=== PATIENT | male | born 1950 | race Caucasian/White ===

== ENCOUNTER → 2016-09-10 | Emergency (ER) | payer OTHER ==
[~2016-09-10] MED LIST: AMOXICILLIN 500 MG CAPSULE (FP) ONE; AMOXICILLIN 500 MG CAPSULE (FP) PO ONE; CLARITHROMYCIN 500 MG TABLET (UD) PO ONE; FAMOTIDINE 20 MG/50 ML IVPB 50 ML IVPB ONE; PANTOPRAZOLE SODIUM 100 ML IVPB ONE; PANTOPRAZOLE SODIUM 40 MG in SODIUM CHLORIDE 100 ML IVPB ONE; SODIUM CHLORIDE 0.9% 1000 ML INFUS.BAG IV ONE
[2016-09-10 17:28] VITALS: BP 137/77; PULSE 59; TEMP 98.3; BMI 34.9
--- NOTE | 2016-09-10 21:49 | PDOC ---
*Physical Exam - Vital Signs Last Vital Signs Temp Pulse Resp BP Pulse Ox 98.3 F 59 L 20 137/77 98 09/10/16 17:24 09/10/16 17:24 09/10/16 17:24 09/10/16 17:24 09/10/16 17:24 ED Treatment Course - LABORATORY CBC & Chemistry Diagram: 09/10/16 23:00 09/10/16 23:00 Medical Decision Making - Medical Decision Making 09/10/16 21:49 agree with care from MAX Madden *DC/Admit/Observation/Transfer Diagnosis at time of Disposition: Gastroduodenitis - Discharge Dispostion Disposition: HOME Condition at time of disposition: Stable - Prescriptions Prescriptions: Amoxicillin - [Amoxicillin 500mg Capsule -] 500 mg PO BID #20 capsule Clarithromycin [Biaxin -] 500 mg PO BID #20 tablet Pantoprazole Sodium [Protonix] 40 mg PO BID #20 tablet.dr - Referrals Referrals: Jos Lucero DO [Staff Physician] - - Patient Instructions Printed Discharge Instructions: DI for Peptic Ulcer Additional Instructions: Please take medications as prescribed. As discussed, you MUST follow up with the gastroenterology doctor THIS WEEK for further evaluation. If you develop fever, chills, nausea, vomiting, diarrhea, rectal bleeding, shortness of breath , chest pain, or any new or worsening symptoms, please return to the ER. Por favor, tome los medicamentos segn las instrucciones. Segn lo discutido, tiene que seguir con el doctor de la gastroenterologa [facility] para la evaluacin adicional. Si usted desarrolla fiebre, escalofros, nuseas, vmitos , diarrea, sangrado rectal, dificultad para respirar, dolor en el pecho, o cualquier nuevo o empeoramiento de los sntomas, por favor regrese a la jack de emergencias. Print Language: BRITISH [place]
--- NOTE | 2016-09-10 22:30 | PDOC ---
History of Present Illness - General Chief Complaint: Pain Stated Complaint: UPPER ABDOMINAL PAIN Time Seen by Provider: 09/10/16 21:04 - History of Present Illness Initial Comments: 09/10/16 22:25 CHIEF COMPLAINT: abdominal pain HISTORY OF PRESENT ILLNESS: 66 yo M with hx of HTN and GERD presents to ED with complaints of abdominal pain and "a lot of saliva" over the past few days. Patient denies any vomiting, diarrhea, rectal bleeding. Patient reports taking "two pills of pain medicine" yesterday but is unsure of what medicine it was. Patient states he has a "bad bacteria in his stomach" that was diagnosed here in this hospital but is unclear what the bacteria was and what medications he was given for treatment. No recent travel or sick contacts. PAST MEDICAL HISTORY: Denies past medical history FAMILY HISTORY: Denies SOCIAL HISTORY: Denies tobacco, alcohol, illicit drug use. SURGICAL HISTORY: Denies ALLERGIES: No known drug allergies REVIEW OF SYSTEMS General/Constitutional: Denies fever or chills. Denies weakness, weight change. HEENT: Denies change in vision. Denies ear pain or discharge. Denies sore throat. Cardiovascular: Denies chest pain or shortness of breath. Respiratory: Denies cough, wheezing, or hemoptysis. Gastrointestinal: "I keep spitting up a lot of salive and I have pain in my stomach." Denies nausea, vomiting, diarrhea or constipation. Denies rectal bleeding. Genitourinary: Denies dysuria, frequency, or change in urination. Musculoskeletal: Denies joint or muscle swelling or pain. Denies neck or back pain. Skin and breasts: Denies rash or easy bruising. Neurologic: Denies headache, vertigo, loss of consciousness, or loss of sensation. PHYSICAL EXAM General Appearance: Well-appearing, appropriately dressed. No apparent distress , no intoxication. HEENT: EOMI, PERRLA, normal ENT inspection, normal voice, TMs normal, pharynx normal. No conjunctival pallor. No photophobia, scleral icterus. Respiratory/Chest: Lungs CTAB. Cardiovascular: RRR. S1, S2. Gastrointestinal/Abdominal: Epigastric tenderness. Normal bowel sounds. Abdomen soft, non-distended. No tenderness or rebound tenderness. No organomegaly, pulsatile mass, guarding, hernia, hepatomegaly, splenomegaly. Lymphatic: No adenopathy, tenderness. Musculoskeletal/Extremities: Normal inspection. FROM of all extremities, normal capillary refill. Pelvis Stable. No CVA tenderness. No tenderness to extremities, pedal edema, swelling, erythema or deformity. Integumentary: Appropriate color, dry, warm. No cyanosis, erythema, jaundice or rash Neurologic: percher II-XII intact. Fully oriented, alert. Appropriate mood/affect. Motor strength 5/5. No appreciable EOM palsy, facial droop or sensory deficit. Past History - Past Medical History Allergies/Adverse Reactions: Allergies Allergy/AdvReac Type Severity Reaction Status Date / Time No Known Drug Allergies Allergy Verified 03/28/16 14:58 Home Medications: Ambulatory Orders Amlodipine Besylate 5 mg PO DAILY 03/28/16 Amoxicillin - [Amoxicillin 500mg Capsule -] 500 mg PO BID #20 capsule 09/11/16 Clarithromycin [Biaxin -] 500 mg PO BID #20 tablet 09/11/16 Pantoprazole Sodium [Protonix] 40 mg PO BID #20 tablet. 09/11/16 Disorders: Yes (NEPHROLITHIASIS) HTN: Yes Kidney Stones: Yes - Immunization History Immunization Up to Date: Yes - Psycho/Social/Smoking Cessation Hx Anxiety: No Suicidal Ideation: No Smoking History: Never smoked Have you smoked in the past 12 months: No If you are a former smoker, when did you quit?: 12 YEARS Hx Alcohol Use: No Drug/Substance Use Hx: No Substance Use Type: None Hx Substance Use Treatment: No *Physical Exam - Vital Signs Last Vital Signs Temp Pulse Resp BP Pulse Ox 98.3 F 59 L 20 137/77 98 09/10/16 17:24 09/10/16 17:24 09/10/16 17:24 09/10/16 17:24 09/10/16 17:24 ED Treatment Course - LABORATORY CBC & Chemistry Diagram: 09/10/16 23:00 09/10/16 23:00 Medical Decision Making - Medical Decision Making 09/10/16 22:28 66 yo M with hx of HTN and GERD presents to ED with complaints of abdominal pain and "a lot of saliva" over the past few days. -CBC, CMP, lipase -IVF, Pepcid, Protonix Chart history indicates patient was diagnosed with gastroduodenitis, but historical labs unavailable. Likely PUD secondary to H. Pylori, will treat as such and have patient f/u up with GI this week for further management. -Clarithromycin 500 mg bid -Amox 1000 bid -Protonix 40 mg bid *DC/Admit/Observation/Transfer Diagnosis at time of Disposition: Gastroduodenitis - Discharge Dispostion Disposition: HOME Condition at time of disposition: Stable Admit: No - Prescriptions Prescriptions: Amoxicillin - [Amoxicillin 500mg Capsule -] 500 mg PO BID #20 capsule Clarithromycin [Biaxin -] 500 mg PO BID #20 tablet Pantoprazole Sodium [Protonix] 40 mg PO BID #20 tablet.dr - Referrals Referrals: Jos Lucero DO [Staff Physician] - - Patient Instructions Printed Discharge Instructions: DI for Peptic Ulcer Additional Instructions: Please take medications as prescribed. As discussed, you MUST follow up with the gastroenterology doctor THIS WEEK for further evaluation. If you develop fever, chills, nausea, vomiting, diarrhea, rectal bleeding, shortness of breath , chest pain, or any new or worsening symptoms, please return to the ER. Por favor, tome los medicamentos segn las instrucciones. Segn lo discutido, tiene que seguir con el doctor de la gastroenterologa [facility] para la evaluacin adicional. Si usted desarrolla fiebre, escalofros, nuseas, vmitos , diarrea, sangrado rectal, dificultad para respirar, dolor en el pecho, o cualquier nuevo o empeoramiento de los sntomas, por favor regrese a la jack de emergencias. Print Language: DJIBOUTIAN
[2016-09-10 23:10] LABS: BASOPHIL 0.6 % (0-2.0); EOSINOPHIL 1.3 % (0-4.5); MCH 27.7 pg (25.7-33.7); MCHC 32.4 g/dl (32.0-35.9); MEAN CELL VOLUME 85.5 fl (80-96); MEAN PLT VOLUME 8.4 fl (7.5-11.1); NEUTROPHILS 47.9 % (42.8-82.8); PLATELET COUNT 186 K/MM3 (134-434); RDW 14.1 % (11.9-15.9); WHITE BLOOD COUNT 5.8 K/mm3 (4.0-10.0)
[2016-09-10 23:42] LABS: ALBUMIN 3.6 g/dl (3.4-5.0); ALK PHOS 91 U/L (45-117); ANION GAP 10 (8-16); BILIRUBIN,TOTAL 0.6 mg/dL (0.2-1.0); CALCIUM 8.6 mg/dL (8.5-10.1); CO2 27 mmol/L (21-32); CREATININE 1.1 mg/dL (0.7-1.3); GLUCOSE,RANDOM 86 mg/dL (74-106); SGOT/AST 21 U/L (15-37); SGPT/ALT 22 U/L (12-78); TOT PROT 7.7 g/dl (6.4-8.2)
== END | disposition home or self-care (01) ==
LOC: JER 17:14
DX: K29.90 Gastroduodenitis, unspecified, without bleeding (principal); K21.9 Gastro-esophageal reflux disease without esophagitis; I10 Essential (primary) hypertension; Z87.442 Personal history of urinary calculi
CPT/HCPCS: 36415; 80053; 83690; 85025; 99282-25

== ENCOUNTER 2019-12-09 17:51 | Inpatient (IN) | payer MEDICARE, OTHER ==
[2019-12-09 17:55] VITALS: BMI 29.1
[2019-12-09] MEDS ORDERED: ACETAMINOPHEN 325 MG TABLET (FP) PO ONE (17:55)
--- NOTE | 2019-12-09 18:11 | PDOC ---
Rapid Medical Evaluation Chief Complaint: Respiratory Time Seen by Provider: 12/09/19 18:08 Medical Evaluation: Allergies Allergy/AdvReac Type Severity Reaction Status Date / Time No Known Drug Allergies Allergy Verified 12/09/19 17:53 Vital Signs Temp Pulse Resp BP Pulse Ox 101.9 F H 98 H 24 H 144/71 96 12/09/19 17:53 12/09/19 17:53 12/09/19 17:53 12/09/19 17:53 12/09/19 17:53 12/09/19 18:09 I performed a brief in-person evaluation of this patient. Patient is a 69-year-old male who presents to the ED for shortness of breath and chest pain. He was recently discharged from the hospital secondary to ARDS and COVID diagnosis. The patient's family called EMS because he was having difficulty breathing and chest pain. Pertinent physical exam findings: Speaking in 3-4 word sentences with slight retractions appreciated. Good air entry bilaterally. Flushed skin appreciated. I have ordered the following: Labs including cardiac panel, EKG, laboratory monitor Patient to proceed to ED for further evaluation. Discharge Disposition - Diagnosis Chest pain - Discharge Dispostion Last Admission D/C Date: 12/08/19 - Referrals Referrals: Kathya Dixon MD [Primary Care Provider] - - Patient Instructions - Post Discharge Activity
--- NOTE | 2019-12-09 18:42 | PDOC ---
History of Present Illness - General Chief Complaint: Respiratory Stated Complaint: POSSIBLE COVID Time Seen by Provider: 12/09/19 18:08 tPA Exclusion checklist 3-4.5h - Time Elapsed Date last known well: 12/08/19 Time last known well: 12:00 Elaspsed time: 1 Day(s) and 13 Hour(s) and 40 Minutes - Thrombolytic Therapy Candidate Is patient eligible for thrombolytic therapy: No - Ineligibility reason(s) Reasons No tPA given: Outside of window - delayed arrival NIH Stroke Scale - Last Known Well Date/Time & Onset Date Last Known Well: 12/08/19 Time Last Known Well: 12:00 - Initial Evaluation Level of consciousness: Alert Ask patient the month and their age: Answers both correctly Ask patient to open & close eyes; make fist and let go: Obeys both correctly Best gaze (horizontal eye movement): Normal Visual field testing: No visual field loss Facial paresis (Show teeth/raise eyebrows/close eyes tight): Normal symmetrical movement Motor Function: Left Arm: Normal Motor Function: Right Arm: Normal (extends arm 90 (or 45) degrees for 10 seconds without drift Motor Function: Left Leg: Normal (extends leg 30 degrees for 5 seconds without drift) Motor Function: Right Leg: Normal (extends leg 30 degrees for 5 seconds without drift) Limb Ataxia: No ataxia Sensory(Use pinprick test arms,legs,trunk,face/side to side): Normal Best language (Describe picture, name items, read sentences): Mild to moderate aphasia Dysarthria (read several words): Normal articulation Extinction and Inattention: No abnormality - Total Score NIH Stroke Scale Score: 1 Past History - Medical History Allergies/Adverse Reactions: Allergies Allergy/AdvReac Type Severity Reaction Status Date / Time No Known Drug Allergies Allergy Verified 12/09/19 17:53 Home Medications: Ambulatory Orders Amlodipine Besylate [Norvasc -] 10 mg PO DAILY 12/07/19 Ascorbic Acid [Vitamin C -] 1,000 mg PO BID #28 tablet 12/08/19 Budesonide/Formeterol Fumarate [SYMBICORT 160/4.5mcg -] 2 puff IH BID #1 inhaler 12/08/19 Zinc Sulfate [Orazinc -] 220 mg PO BID #28 capsule 12/08/19 COPD: No Disorders: Yes (NEPHROLITHIASIS) HTN: Yes Kidney Stones: Yes - Immunization History Immunization Up to Date: Yes - Psycho-Social/Smoking History Smoking History: Never smoked Have you smoked in the past 12 months: No If you are a former smoker, when did you quit?: 12 YEARS - Substance Abuse Hx (Audit-C & DAST Scrn) How often the patient has a drink containing alcohol: Never Score: In Men: 4 or > Positive; In Women: 3 or > Positive: 0 Screen Result (Pos requires Nsg. Audit-10AR): Negative In the last yr the pt used illegal drug/Rx for NonMed reason: No Score: Yes response is considered Positive: 0 Screen Result (Positive result requires Nsg. DAST-10): Negative *Physical Exam - Vital Signs Last Vital Signs Temp Pulse Resp BP Pulse Ox 101.9 F H 98 H 24 H 144/71 96 12/09/19 17:53 12/09/19 17:53 12/09/19 17:53 12/09/19 17:53 12/09/19 17:53 ED Treatment Course - LABORATORY CBC & Chemistry Diagram: 12/09/19 19:49 12/09/19 19:49 - Medications Given in the ED: ED Medications Discontinued Medications Generic Name Dose Route Start Last Admin Trade Name Freq PRN Reason Stop Dose Admin Acetaminophen 975 mg 12/09/19 17:55 12/09/19 17:55 Tylenol - PO 12/09/19 17:56 975 mg NOW ONE Administration Medical Decision Making - Medical Decision Making 12/09/19 18:41 HPI: 69yo M hx HTN, GERD, COVID + (admitted here 12/05-12/07) sent from home by family for shortness of breath and chest pain. He was recently discharged yesterday from the hospital secondary to ARDS and COVID diagnosis. The patient's family called EMS because he was having difficulty breathing and chest pain. Pt states his difficulty breathing has improved over the past days, and his chest pain has remained the same for 4 days, intermittent, L-sided, pressure type, worse with breathing and exertion. Pt states he feels better than before. Pt states he visited the ED more than a few days ago and states he did not sleep here. He states he has been home from the hospital for 3-4 days. Pt knows name and birthday and hospital location, but does not know year or date or situation. Pt does not know why he's here. Per Dr Torres, pt was A&Ox4 on 12/06/19 and exhibited no signs of dementia/delirium or memory loss. Per son ([phone]), pt has no hx of memory loss or dementia, though son states he's never asked the pt what month/day/year it is so he's not sure if he would know that. Son states he left hospital yesterday and son noticed worsening difficulty breathing and sick appearance "mareado" so sent him back. ROS: Constitutional: Positive for fever. Negative for chills, fatigue, diaphoresis. HENT: Negative for sore throat, rhinorrhea, congestion. Eyes: Negative for visual disturbance. Respiratory: Positive for shortness of breath. Negative for cough, and wheezing. Cardiovascular: Positive for chest pain. Negative for palpitations, and leg swelling. Gastrointestinal: Negative for abdominal pain, blood in stool, constipation, diarrhea, nausea, and vomiting. Genitourinary: Negative for dysuria, flank pain, and hematuria. Musculoskeletal: Negative for myalgias, back pain, and neck pain. Skin: Negative for rash. Neurological: Positive for AMS. Negative for light-headedness, dizziness, vertigo, syncope, weakness, numbness and headaches. Psychiatric/Behavioral: Positive for AMS/confusion. Negative for behavioral problems. PE: Gen: Alert, NAD, comfortable-appearing. HEENT: PERRL, EOMI, MMM, NCAT. No conjunctival pallor. Sclera are non-icteric. CV: Regular rate and rhythm. No murmurs, rubs, or gallops. PULM: No resp distress. +crackles b/l bases, good air movement b/l, no wheezes or rhonchi. ABD: soft, NT/ND, no rebound tenderness or guarding, no CVA tenderness. BACK: No TTP of c/t/l-spine. No step-offs or deformities. MSK: No bony deformities. 2+ pulses in all extremities. NEURO: Alert and oriented to name and place, but not to date or situation. PERRL. CN 2-12 intact. 5/5 strength in all extremities. Sensation to light touch intact in all extremities. No pronator drift. No dysmetria. No dysdiadochokinesia. No abnormal nystagmus. Normal gait. EXTREMITIES: No cyanosis. No clubbing. No edema. No calf tenderness. PSYCH: Normal mood and thought pattern. SKIN: Warm and dry. Normal capillary refill. No rashes. No jaundice. MDM: 69yo M hx HTN, GERD, COVID + (admitted here 12/05-12/07) presents from home for worsening shortness of breath and chest pain, as well as new AMS. Febrile 101.9F, tachycardic 98, tachypneic 24, O2 sat 98% on RA, normotensive. NIHSS 1 mild aphasia/memory loss, LKN ~noon yesterday. Ddx: CP and SOB likely due to COVID. Also consider ACS/PR, PE, PNA, arrhythmia. For AMS, consider stroke (possible increased risk due to COVID), metabolic/respiratory encephalopathy, anemia, infection. -CTH -EKG -CXR -AMS and stroke workup -COVID w/u -surveillance monitor -Isolation -Dispo: likely admit pending w/u 12/09/19 22:56 CTH reviewed: no acute pathology Labs reviewed. Notable for increase in inflammatory markers and d-dimer from yesterday, hyponatremia, HLD -Consider eliquis or other blood thinner CXR reviewed: no significant change from prior EKG reviewed: 85bpm, NSR, low voltage QRS, DE interval 150ms, QTc 447ms, no significant change from prior Admit for AMS, COVID, concern for hypoxemic encephalopathy vs metabolic encephalopathy vs stroke 2/2 COVID Discharge - Discharge Information Problems reviewed: Yes Clinical Impression/Diagnosis: Chest pain, COVID-19, SOB (shortness of breath), AMS (altered mental status) Condition: Stable - Admission Yes - Follow up/Referral - Patient Discharge Instructions - Post Discharge Activity
[2019-12-09 20:14] LABS: BASO % 0.5 % (0-2.0); HEMATOCRIT 39.9 % (35.4-49); HEMOGLOBIN 13.3 GM/dL (11.7-16.9); LYMPH % 5.6 % (8-40); MCH 27.5 pg (25.7-33.7); MCHC 33.3 g/dl (32.0-35.9); MEAN CELL VOLUME 82.5 fl (80-96); MEAN PLT VOLUME 8.5 fl (7.5-11.1); MONO % 6.8 % (3.8-10.2); NEUT % 87.1 % (42.8-82.8); PLATELET COUNT 240 K/MM3 (134-434); RBC 4.83 M/mm3 (4.00-5.60); RDW 13.4 % (11.9-15.9); WHITE BLOOD COUNT 13.9 K/mm3 (4.0-10.0)
[2019-12-09 20:15] LABS: VENOUS BASE EXCESS -3.3 mmol/L (-2-2); VENOUS O2 SATURATION 90.6 % (70-80); VENOUS PCO2 26.3 mmHg (38-52); VENOUS PH 7.469 (7.310-7.410)
[2019-12-09 20:20] LABS: INR 0.93 (0.83-1.09)
[2019-12-09 20:22] LABS: ACTIVATED PTT 27.4 SECONDS (25.2-36.5)
--- NOTE | 2019-12-09 20:23 | PDOC ---
Documentation entered by Ilan Saldivar SCRIBE, acting as scribe for Enu Guillermo MD. Eun Guillermo MD: This documentation has been prepared by the scribe, Ilan Saldivar SCRIBE, under my direction and personally reviewed by me in its entirety. I confirm that the documentation accurately reflects all work, treatment, procedures, and medical decision making performed by me. Attending Attestation - Resident Resident Name: Eun Leyva - ED Attending Attestation I have performed the following: I have examined & evaluated the patient, The case was reviewed & discussed with the resident, I agree w/resident's findings & plan, Exceptions are as noted - HPI HPI: 12/09/19 19:21 The patient is a 69 year old male with a significant past medical history of HTN, currently, COVID positive who presents to the emergency department, [facility], for evaluation of worsening chest pain and shortness of breath that began 12 days ago. The patient is currently AMS (not baseline), unable to remember the date, year, and his discharge from the hospital yesterday. As per family over the phone, the patient experienced an exacerbation of his chest pain and shortness of breath today. The patient currently reports feeling better, reporting his chest pain has been the same for four days and his shortness of breath is better. He came to the ED 12/06/19 for evaluation of 9 days of fever, chills, myalgias, and loss of taste. He was admitted until 12/08/19 secondary to ARDS and COVID diagnosis. The patient notes returning from [facility] on 12/03/19. Allergies: NKDA Social Hx: The patient reports he quit smoking 30 years ago. Denies tobacco and drug use. PCP: Kathya Dixon - Physicial Exam PE: 12/09/19 18:46 GENERAL: Awake, alert, and oriented to person and place, but not time. In no acute distress HEAD: No signs of trauma EYES: PERRLA, EOMI, sclera anicteric, conjunctiva clear ENT: Auricles normal inspection, hearing grossly normal, nares patent, oropharynx clear without exudates. Moist mucosa NECK: Normal ROM, supple, no lymphadenopathy, JVD, or masses LUNGS: Breath sounds equal, clear to auscultation bilaterally. No wheezes, and no crackles HEART: Regular rate and rhythm, normal S1 and S2, no murmurs, rubs or gallops ABDOMEN: Soft, nontender, normoactive bowel sounds. No guarding, no rebound. No masses EXTREMITIES: Normal range of motion, no edema. No clubbing or cyanosis. No cords, erythema, or tenderness NEUROLOGICAL: Cranial nerves II through XII grossly intact. Normal speech, normal gait. No sensorimotor deficits. SKIN: Warm, Dry, normal turgor, no rashes or lesions noted. - Medical Decision Making Pt discharged home with COVID-19 yesterday, returned to ED today with initial complaint of SOB/chest pressure and upper chest pain. On exam was found to be disoriented to time, did not know the date or year. This is not his baseline as per family. AMS workup initiated in the ED. Poss CVA due to COVID-19, but also could be another infectious process, metabolic encephalopathy. Await labs, CTH, CXR. Not a tPA candidate- unclear onset. Plan for admission. NIH Stroke Scale - Last Known Well Date/Time & Onset Date Last Known Well: 12/09/19 - Initial Evaluation Level of consciousness: Alert Ask patient the month and their age: Answers one correctly Ask patient to open & close eyes; make fist and let go: Obeys both correctly Best gaze (horizontal eye movement): Normal Visual field testing: No visual field loss Facial paresis (Show teeth/raise eyebrows/close eyes tight): Normal symmetrical movement Motor Function: Left Arm: Normal Motor Function: Right Arm: Normal (extends arm 90 (or 45) degrees for 10 seco nds without drift Motor Function: Left Leg: Normal (extends leg 30 degrees for 5 seconds without drift) Motor Function: Right Leg: Normal (extends leg 30 degrees for 5 seconds without drift) Limb Ataxia: No ataxia Sensory(Use pinprick test arms,legs,trunk,face/side to side): Normal Best language (Describe picture, name items, read sentences): No Aphasia Dysarthria (read several words): Normal articulation Extinction and Inattention: No abnormality - Total Score NIH Stroke Scale Score: 1 Discharge - Discharge Information Problems reviewed: Yes Clinical Impression/Diagnosis: COVID-19, SOB (shortness of breath) Chest pain Qualifiers: Chest pain type: chest pain on breathing Qualified Code(s): R07.1 - Chest pain on breathing; R07.81 - Pleurodynia AMS (altered mental status) Qualifiers: Altered mental status type: disorientation Qualified Code(s): R41.0 - Disorientation, unspecified Condition: Stable - Follow up/Referral - Patient Discharge Instructions - Post Discharge Activity
[2019-12-09 20:31] LABS: ALK PHOS 73 U/L (45-117); ANION GAP 9 MMOL/L (8-16); BILIRUBIN,TOTAL 0.6 mg/dL (0.2-1); BLOOD UREA NITROGEN 20.8 mg/dL (7-18); CALCIUM 8.3 mg/dL (8.5-10.1); CHLORIDE 100 mmol/L (98-107); CHOLESTEROL 121 mg/dL (50-200); CO2 23 mmol/L (21-32); CREATININE 1.2 mg/dL (0.55-1.3); GLUCOSE,RANDOM 223 mg/dL (74-106); HDL CHOLESTEROL 25 mg/dL (40-60); LDL CHOLESTEROL (ONLY SJRH) 41 mg/dL (5-100); MAGNESIUM 1.9 mg/dL (1.8-2.4); POTASSIUM 4.1 mmol/L (3.5-5.1); SGOT/AST 59 U/L (15-37); SGPT/ALT 57 U/L (13-61); SODIUM 132 mmol/L (136-145); TOT PROT 7.2 g/dl (6.4-8.2); TRIGLYCERIDES 251 mg/dL (0-150)
[2019-12-09 20:34] LABS: BILIRUBIN,DIRECT 0.2 mg/dL (0.0-0.2)
[2019-12-09 20:48] LABS: LDH 340 U/L (87-246)
[2019-12-09 20:52] LABS: ANISOCYTOSIS 0; MACROCYTOSIS 0; PLATELET ESTIMATE NORMAL
[2019-12-09 22:15] LABS: EPI CELLS 15 /uL (0-25.1); HYALINE CASTS 16 /uL (0-3.1); URINE APPEARANCE CLEAR; URINE BACTERIA 175 /uL (0-1359); URINE BILIRUBIN NEGATIVE (NEGATIVE); URINE COLOR YELLOW; URINE GLUCOSE (UA) NEGATIVE (NEGATIVE); URINE KETONE NEGATIVE (NEGATIVE); URINE LEUK ESTERASE NEGATIVE (NEGATIVE); URINE NITRITE NEGATIVE (NEGATIVE); URINE PROTEIN 1+ (NEGATIVE); URINE RBC 2 /uL (0-23.9); URINE WBC 2 /uL (0-25.8)
--- NOTE | 2019-12-09 23:14 | PN ---
Teaching Attending Note Name of Resident: Candelario Pineda ATTENDING PHYSICIAN STATEMENT I saw and evaluated the patient. I reviewed the resident's note and discussed the case with the resident. I agree with the resident's findings and plan as documented. SUBJECTIVE: Patient is a 69 year old man with a PMH of HTN, Kidney stones, GERD and COVID-19 infection (12/06/2019) who presents to the ER for evaluation of worsening chest pain and shortness of breath that began 12 days ago. Noted to have AMS in the ER (not baseline), unable to remember the date, year, and his discharge from the hospital yesterday. As per family over the phone, the patient experienced an exacerbation of his chest pain and shortness of breath today. The patient currently reports feeling better, reporting his chest pain has been the same for four days and his shortness of breath is better. He came to the ED 12/06/19 for evaluation of 9 days of fever, chills, myalgias and loss of taste. He was admitted until 12/08/19 secondary to ARDS and COVID diagnosis. He had completed an antibiotics course and was deemed not a candidate for Remdesivir or convalescent plasma because he was not hypoxic. He returned from [facility] on 12/03/2019. Patient denies nausea, vomiting, diarrhea, constipation, dysuria, frequency, urgency, melena, hematochezia or hematuria. Denies alcohol, tobacco or illicit drug use. Family history is unremarkable. OBJECTIVE: Alert Vital Signs Period Temp Pulse Resp BP Sys/Harkins Pulse Ox Last 24 Hr 100.2 F-101.9 F 87-98 20-24 136-144/67-71 96-97 HEENT: No Jaundice, eye redness or discharge, PERRLA, EOMI. Normocephalic, atraumatic. External ears are normal and hearing is grossly intact. No nasal discharge. Neck: Supple, nontender. No palpable adenopathy or thyromegaly. No JVD Chest: Good effort. Clear to auscultation and percussion. Heart: Regular. No S3, rub or murmur Abdomen: Not distended, soft, nontender and no HSM. No rebound or guarding. Normal bowel sounds. Ext: Peripheral pulses intact. No leg edema. Skin: Warm and dry. No petechiae, rash or ecchymosis. Neuro: Alert. Oriented x3. CN 2-12 grossly intact. Sensation grossly intact in all four extremities and DTR are symmetric. Psych: Appropriate mood and affect. Good insight. Home Medications Medication Instructions Recorded Amlodipine Besylate [Norvasc -] 10 mg PO DAILY 12/07/19 Ascorbic Acid [Vitamin C -] 1,000 mg PO BID #28 tablet 12/08/19 Budesonide/Formeterol Fumarate 2 puff IH BID #1 inhaler 12/08/19 [SYMBICORT 160/4.5mcg -] Zinc Sulfate [Orazinc -] 220 mg PO BID #28 capsule 12/08/19 Abnormal Lab Results 12/09/19 12/09/19 12/09/19 19:49 19:49 19:49 WBC 13.9 H Absolute Neuts (auto) 12.1 H Neutrophils % 87.1 H Lymphocytes % 5.6 L D-Dimer VBG pH 7.469 H POC VBG pCO2 26.3 L POC VBG pO2 54.0 H VBG HCO3 18.7 L VBG O2 Sat (Rogerio) 90.6 H VBG Base Excess -3.3 L Sodium 132 L BUN 20.8 H Random Glucose 223 H Calcium 8.3 L Ferritin AST 59 H LD Total 340 H Creatine Kinase 423 H C-Reactive Protein 8.6 H Albumin 3.0 L Triglycerides 251 H HDL Cholesterol 25 L Ur Specific [place] Urine Protein 12/09/19 12/09/19 12/09/19 19:49 19:49 21:55 WBC Absolute Neuts (auto) Neutrophils % Lymphocytes % D-Dimer 1329 H VBG pH POC VBG pCO2 POC VBG pO2 VBG HCO3 VBG O2 Sat (Rogerio) VBG Base Excess Sodium BUN Random Glucose Calcium Ferritin 903.8 H AST LD Total Creatine Kinase C-Reactive Protein Albumin Triglycerides HDL Cholesterol Ur Specific [place] 1.008 L Urine Protein 1+ H Current Medications Generic Name Dose Route Start Last Admin Trade Name Freq PRN Reason Stop Dose Admin Amlodipine Besylate 10 mg 12/10/19 10:00 Norvasc - PO DAILY MAYNOR Ascorbic Acid 1,000 mg 12/10/19 10:00 Vitamin C - PO BID MAYNOR Budesonide/Formoterol Fumarate 2 puff 12/10/19 10:00 Symbicort 160/4.5mcg - IH BID MAYNOR Enoxaparin Sodium 40 mg 12/10/19 10:00 Lovenox - SQ DAILY [facility] Zinc Sulfate 220 mg 12/10/19 10:00 Orazinc - PO BID [facility] ASSESSMENT AND PLAN: 1. COVID-19 infection/Pneumonitis/AMS - Oxygen saturation was 96-97% on 2L nasal cannula. CT chest from 12/07/2019 showed peripheral ground glass infiltrates consistent with COVID-19 pneumonitis. CXR shows cardiomegaly with bibasilar interstitial infiltrates. No acute abnormality on head CT. AMS and impaired memory likely due to COVID-19 infection. Will treat patient with Zinc sulfate, Pepcid, Vitamin C, Tylenol PRN and consult ID. Already completed a course of antibiotics two days ago. Needs ID consult approval for Remdesivir and convalescent plasma. Will send blood for type and cross. Viral testing for COVID-19 ordered and patient placed on airborne, droplet and contact isolation. Started on supplemental oxygen via nasal cannula. EKG shows NSR at 85/minute, LAFB and QTc [address]- T wave changes. Initial troponin is negative. Hyponatremia likely partly due to hyperglycemia. Will limit free water intake and correct hyperglycemia. Will continue comprehensive care for all of patients comorbid conditions. 2. Hypoalbuminemia - Possibly due to combined effects of malnutrition and inflammation associated with comorbid conditions. 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 3. Hypertension Will restart suitable outpatient antihypertensive drugs when clinically appropriate. Subsequently, will revise regimen to ensure [id number] excellent BP control. Patient counseled on the injurious effects of uncontrolled hypertension. Nonpharmacologic measures to control hypertension like weight loss, salt restriction and exercise stressed. Importance of adherence to treatment regimen and attainment of normotension emphasized. 4. DVT prophylaxis - Lovenox 40 mg SQ q 24 hours. 5. Advance directives - Full code
--- NOTE | 2019-12-10 04:15 | HP ---
CHIEF COMPLAINT: SOB PCP: HISTORY OF PRESENT ILLNESS: This is a 69 year old male with PMH of HTN and recent admission for COVID (12/05- 12/07). Pt. appears to be tired and wanting to sleep, unwilling to participate in interview at this time. As per chart review from previous visit, he returned from the [facility] on 12/02 and he began having fevers a few days prior to his trip. This was associated with chills, dry cough, lethargy, and anosmia for the last 9 days. He completed a 5 day course of Azithromycin outpatient, which did not improve his symptoms. He was admitted on 12/05, and was D/Hero on 12/07 without requiring any oxygen support. CT Chest at the time showed B/L ground glass infiltrates suggestive of COVID, although antibody at the time was negative. He was given Dexamethasone 10mg x1, Solu-Medrol 32mg x1, Ceftriaxone 1g x2, Doxycycline 100mg x1, and Azithromycin IVPB 500mg x1. He now returns with SOB and chest pain. ER course was notable for: (1) D dimer 1.3k (2)Temp 100.3 (3) CT Head: no acute pathology Recent Travel: Unable to assess PAST MEDICAL HISTORY: Unable to assess PAST SURGICAL HISTORY: Unable to assess Social History: Unable to assess Allergies No Known Drug Allergies Allergy (Verified 12/09/19 17:53) HOME MEDICATIONS: Home Medications Medication Instructions Recorded Amlodipine Besylate [Norvasc -] 10 mg PO DAILY 12/07/19 Ascorbic Acid [Vitamin C -] 1,000 mg PO BID #28 tablet 12/08/19 Budesonide/Formeterol Fumarate 2 puff IH BID #1 inhaler 12/08/19 [SYMBICORT 160/4.5mcg -] Zinc Sulfate [Orazinc -] 220 mg PO BID #28 capsule 12/08/19 REVIEW OF SYSTEMS CONSTITUTIONAL: Absent: fever, chills, diaphoresis, generalized weakness, malaise, loss of appetite, weight change HEENT: Absent: rhinorrhea, nasal congestion, throat pain, throat swelling, difficulty swallowing, mouth swelling, ear pain, eye pain, visual changes CARDIOVASCULAR: Absent: chest pain, syncope, palpitations, irregular heart rate, lightheadedness, peripheral edema RESPIRATORY: Absent: cough, shortness of breath, dyspnea with exertion, orthopnea, wheezing, stridor, hemoptysis GASTROINTESTINAL: Absent: abdominal pain, abdominal distension, nausea, vomiting, diarrhea, constipation, melena, hematochezia GENITOURINARY: Absent: dysuria, frequency, urgency, hesitancy, hematuria, flank pain, genital pain MUSCULOSKELETAL: Absent: myalgia, arthralgia, joint swelling, back pain, neck pain SKIN: Absent: rash, itching, pallor HEMATOLOGIC/IMMUNOLOGIC: Absent: easy bleeding, easy bruising, lymphadenopathy, frequent infections ENDOCRINE: Absent: unexplained weight gain, unexplained weight loss, heat intolerance, cold intolerance NEUROLOGIC: Absent: headache, focal weakness or paresthesias, dizziness, unsteady gait, seizure, mental status changes, bladder or bowel incontinence PSYCHIATRIC: Absent: anxiety, depression, suicidal or homicidal ideation, hallucinations. PHYSICAL EXAMINATION Vital Signs - 24 hr 12/09/19 12/09/19 12/09/19 17:53 19:30 20:53 Temperature 101.9 F H Pulse Rate 98 H 87 Pulse Rate [ Left Radial] Respiratory 24 H Rate Blood Pressure 144/71 Blood Pressure [Left Arm] O2 Sat by Pulse 96 97 97 Oximetry (%) 12/09/19 12/09/19 12/10/19 21:57 21:58 00:43 Temperature 100.2 F H 100.6 F H Pulse Rate 89 Pulse Rate [ 89 103 H Left Radial] Respiratory 20 20 Rate Blood Pressure Blood Pressure 136/67 [Left Arm] O2 Sat by Pulse 97 97 96 Oximetry (%) 12/10/19 12/10/19 12/10/19 00:50 01:35 02:59 Temperature 100.3 F H Pulse Rate 85 100 H Pulse Rate [ Left Radial] Respiratory 20 Rate Blood Pressure 155/78 Blood Pressure [Left Arm] O2 Sat by Pulse 97 97 94 L Oximetry (%) 12/10/19 04:07 Temperature 102.7 F H Pulse Rate 100 H Pulse Rate [ Left Radial] Respiratory 22 H Rate Blood Pressure 139/74 Blood Pressure [Left Arm] O2 Sat by Pulse 95 Oximetry (%) GENERAL: Awake, alert, and fully oriented, in no acute distress. HEAD: Normal with no signs of trauma. EYES: Pupils equal, round and reactive to light, extraocular movements intact, sclera anicteric, conjunctiva clear. No lid lag. EARS, NOSE, THROAT: Ears normal, nares patent, oropharynx clear without exudates. Moist mucous membranes. NECK: Normal range of motion, supple without lymphadenopathy, JVD, or masses. LUNGS:Decreased breath sounds B/L, no crackles or wheezes HEART: Regular rate and rhythm, normal S1 and S2 without murmur, rub or gallop. ABDOMEN: Soft, nontender, not distended, normoactive bowel sounds, no guarding, no rebound, no masses. No hepatomegaly or splenomegaly. MUSCULOSKELETAL: Normal range of motion at all joints. No bony deformities or tenderness. No CVA tenderness. UPPER EXTREMITIES: 2+ pulses, warm, well-perfused. No cyanosis. No clubbing. No peripheral edema. LOWER EXTREMITIES: 2+ pulses, warm, well-perfused. No calf tenderness. No peripheral edema. NEUROLOGICAL: Cranial nerves II-XII intact. Normal speech. Normal gait. PSYCHIATRIC: Cooperative. Good eye contact. Appropriate mood and affect. SKIN: Warm, dry, normal turgor, no rashes or lesions noted, normal capillary refill. Laboratory Results - last 24 hr 12/09/19 12/09/19 12/09/19 19:49 19:49 19:49 WBC 13.9 H RBC 4.83 Hgb 13.3 Hct 39.9 MCV 82.5 MCH 27.5 MCHC 33.3 RDW 13.4 Plt Count 240 MPV 8.5 Absolute Neuts (auto) 12.1 H Neutrophils % 87.1 H Neutrophils % (Manual) 82.4 Band Neutrophils % 0.9 Lymphocytes % 5.6 L Lymphocytes % (Manual) 9.3 Monocytes % 6.8 Monocytes % (Manual) 6 Eosinophils % 0.0 Eosinophils % (Manual) 0.0 Basophils % 0.5 D Basophils % (Manual) 0.0 Myelocytes % (Man) 1 Promyelocytes % (Man) 0 Blast Cells % (Manual) 0 Nucleated RBC % 0 Metamyelocytes 1 Hypochromia 0 Platelet Estimate Normal Polychromasia 0 Poikilocytosis 0 Anisocytosis 0 Microcytosis 0 Macrocytosis 0 PT with INR 11.00 INR 0.93 PTT (Actin FS) 27.4 D-Dimer VBG pH POC VBG pCO2 POC VBG pO2 VBG HCO3 VBG O2 Sat (Rogerio) VBG Base Excess Sodium 132 L Potassium 4.1 Chloride 100 Carbon Dioxide 23 Anion Gap 9 BUN 20.8 H Creatinine 1.2 Est GFR (CKD-EPI)AfAm 71.58 Est GFR (CKD-EPI)NonAf 61.76 Random Glucose 223 H Lactic Acid Calcium 8.3 L Magnesium 1.9 Ferritin Total Bilirubin 0.6 Direct Bilirubin AST 59 H ALT 57 Alkaline Phosphatase 73 LD Total 340 H Creatine Kinase 423 H Creatine Kinase Index No Result Required. CK-MB (CK-2) < 1.0 Troponin I < 0.02 C-Reactive Protein 8.6 H Total Protein 7.2 Albumin 3.0 L Triglycerides 251 H Cholesterol 121 Total LDL Cholesterol 41 HDL Cholesterol 25 L Urine Color Urine Appearance Urine pH Ur Specific [place] Urine Protein Urine Glucose (UA) Urine Ketones Urine Blood Urine Nitrite Urine Bilirubin Urine Urobilinogen Ur Leukocyte Esterase Urine WBC (Auto) Urine RBC (Auto) Urine Casts (Auto) U Pathogenic Cast Auto U Epithel Cells (Auto) Urine Bacteria (Auto) Blood Type Antibody Screen 12/09/19 12/09/19 12/09/19 19:49 19:49 19:49 WBC RBC Hgb Hct MCV MCH MCHC RDW Plt Count MPV Absolute Neuts (auto) Neutrophils % Neutrophils % (Manual) Band Neutrophils % Lymphocytes % Lymphocytes % (Manual) Monocytes % Monocytes % (Manual) Eosinophils % Eosinophils % (Manual) Basophils % Basophils % (Manual) Myelocytes % (Man) Promyelocytes % (Man) Blast Cells % (Manual) Nucleated RBC % Metamyelocytes Hypochromia Platelet Estimate Polychromasia Poikilocytosis Anisocytosis Microcytosis Macrocytosis PT with INR INR PTT (Actin FS) D-Dimer VBG pH 7.469 H POC VBG pCO2 26.3 L POC VBG pO2 54.0 H VBG HCO3 18.7 L VBG O2 Sat (Rogerio) 90.6 H VBG Base Excess -3.3 L Sodium Potassium Chloride Carbon Dioxide Anion Gap BUN Creatinine Est GFR (CKD-EPI)AfAm Est GFR (CKD-EPI)NonAf Random Glucose Lactic Acid 1.4 Calcium Magnesium Ferritin 903.8 H Total Bilirubin Direct Bilirubin 0.2 AST ALT Alkaline Phosphatase LD Total Creatine Kinase Creatine Kinase Index CK-MB (CK-2) Troponin I C-Reactive Protein Total Protein Albumin Triglycerides Cholesterol Total LDL Cholesterol HDL Cholesterol Urine Color Urine Appearance Urine pH Ur Specific [place] Urine Protein Urine Glucose (UA) Urine Ketones Urine Blood Urine Nitrite Urine Bilirubin Urine Urobilinogen Ur Leukocyte Esterase Urine WBC (Auto) Urine RBC (Auto) Urine Casts (Auto) U Pathogenic Cast Auto U Epithel Cells (Auto) Urine Bacteria (Auto) Blood Type Antibody Screen 12/09/19 12/09/19 12/09/19 19:49 20:40 21:55 WBC RBC Hgb Hct MCV MCH MCHC RDW Plt Count MPV Absolute Neuts (auto) Neutrophils % Neutrophils % (Manual) Band Neutrophils % Lymphocytes % Lymphocytes % (Manual) Monocytes % Monocytes % (Manual) Eosinophils % Eosinophils % (Manual) Basophils % Basophils % (Manual) Myelocytes % (Man) Promyelocytes % (Man) Blast Cells % (Manual) Nucleated RBC % Metamyelocytes Hypochromia Platelet Estimate Polychromasia Poikilocytosis Anisocytosis Microcytosis Macrocytosis PT with INR INR PTT (Actin FS) D-Dimer 1329 H VBG pH POC VBG pCO2 POC VBG pO2 VBG HCO3 VBG O2 Sat (Rogerio) VBG Base Excess Sodium Potassium Chloride Carbon Dioxide Anion Gap BUN Creatinine Est GFR (CKD-EPI)AfAm Est GFR (CKD-EPI)NonAf Random Glucose Lactic Acid Calcium Magnesium Ferritin Total Bilirubin Direct Bilirubin AST ALT Alkaline Phosphatase LD Total Creatine Kinase Creatine Kinase Index CK-MB (CK-2) Troponin I C-Reactive Protein Total Protein Albumin Triglycerides Cholesterol Total LDL Cholesterol HDL Cholesterol Urine Color Yellow Urine Appearance Clear Urine pH 6.0 Ur Specific [place] 1.008 L Urine Protein 1+ H Urine Glucose (UA) Negative Urine Ketones Negative Urine Blood Trace Urine Nitrite Negative Urine Bilirubin Negative Urine Urobilinogen 1.0 Ur Leukocyte Esterase Negative Urine WBC (Auto) 2 Urine RBC (Auto) 2 Urine Casts (Auto) 16 U Pathogenic Cast Auto None seen U Epithel Cells (Auto) 15 Urine Bacteria (Auto) 175 Blood Type O POSITIVE Antibody Screen Negative ASSESSMENT/PLAN: 69 year old male with PMH of HTN and recent admission for COVID (12/05-12/07), returning with SOB and chest pain. #COVID-19 - Cough, fevers, anosmia, elevated inflammatory markers, D dimers 1.3k, Elevated Creatinine GGI on CT - Isolation precautions, COVID PCR ordered - WBC 13.9 - Trend markers - Started on Lovenox 75mg BID due to elevated D dimers - ID consult for recs regarding abx, may need rx for concurrent/superimposed CAP - Pulm consult placed for recs regarding Remdesevir/Plasma/Dexamethasone therapy - Would recommend recording SpO2 off of oxygen in the morning when adequate support is available in case of acute deterioration - Blood cx sent - Zinc, Vitamin C resumed #Proteinuria - Will repeat to r/o transient proteinuria, may also be 2/2 infection - Urine Protein:Cr ratio if persistently elevated #Hx of HTN -Continue home Norvasc #FEN - Na controlled diet #Prophylaxis - Lovenox 75mg BID #Dispo - Monitor in [place] ATTENDING PHYSICIAN STATEMENT I saw and evaluated the patient. I reviewed the resident's note and discussed the case with the resident. I agree with the resident's findings and plan as documented. SUBJECTIVE: OBJECTIVE: ASSESSMENT AND PLAN:
[2019-12-10] MEDS ORDERED: ACETAMINOPHEN 325 MG TABLET (FP) PO PRN ×2 (04:17→12:34)
[2019-12-10] MEDS: ENOXAPARIN NA (PORCINE) 80 MG/0.8 ML DISP.SYRIN SQ SCH ×2 (05:40→17:42)
[2019-12-10 08:52] LABS: HEMATOCRIT 38.9 % (35.4-49); HEMOGLOBIN 13.1 GM/dL (11.7-16.9); MCH 28.1 pg (25.7-33.7); MCHC 33.7 g/dl (32.0-35.9); MEAN CELL VOLUME 83.2 fl (80-96); MEAN PLT VOLUME 9.2 fl (7.5-11.1); PLATELET COUNT 207 K/MM3 (134-434); RBC 4.67 M/mm3 (4.00-5.60); RDW 13.2 % (11.9-15.9); WHITE BLOOD COUNT 11.4 K/mm3 (4.0-10.0)
[2019-12-10 09:23] LABS: ALBUMIN 2.7 g/dl (3.4-5.0); BILIRUBIN,TOTAL 0.7 mg/dL (0.2-1); CREATININE 1.1 mg/dL (0.55-1.3); PHOSPHOROUS 2.6 mg/dL (2.5-4.9); POTASSIUM 4.4 mmol/L (3.5-5.1); TOT PROT 6.7 g/dl (6.4-8.2)
[2019-12-10] MEDS ORDERED: ENOXAPARIN NA (PORCINE) 40 MG/0.4 ML DISP.SYRIN SQ SCH (10:00)
[2019-12-10] MEDS: amLODIPine BESYLATE 10 MG TABLET (FP) PO SCH (10:18)
[2019-12-10] MEDS: ASCORBIC ACID 500 MG TABLET (FP) PO SCH ×2 (10:18→21:25)
[2019-12-10] MEDS: ZINC SULFATE 220 MG CAPSULE (FP) PO SCH ×2 (10:18→21:25)
[2019-12-10] MEDS ORDERED: PT OWN MED DRAWER 7, Y5N ONE (10:22)
[2019-12-10] MEDS: BUDESONIDE/FORMETEROL FUMARATE 160/4.5 mcg INHALER IH SCH ×2 (10:22→21:25)
--- NOTE | 2019-12-10 11:53 | PN ---
Progress Note (short form) - Note Progress Note: This patient is a 69yom with PMHx of HTN , with a recent admission for COVID (12/05-12/07), patient returned from the [facility] on 12/02 and started having fevers a few days prior to his trip , dry cough, lethargy, and anosmia for the last 9 days. He completed a 5 day of Azithromycin outpatient, which did not improve his symptoms. He was admitted on 12/05, and was D/Hero on 12/07 without requiring any oxygen support. CT Chest at the time showed B/L ground glass i nfiltrates suggestive of COVID, although antibody at the time was negative. Patient was given Dexamethasone 10mg x1, Solu-Medrol 32mg x1, Ceftriaxone 1g x2, Doxycycline 100mg x1, and Azithromycin IVPB 500mg x1. He now returns with SOB and chest pain. 95% on 2liter today Vital Signs Temperature 99.9 F H 12/10/19 08:00 Pulse Rate 89 12/10/19 08:00 Respiratory Rate 20 12/10/19 09:00 Blood Pressure 141/74 12/10/19 08:00 O2 Sat by Pulse Oximetry (%) 95 12/10/19 09:00 GENERAL: The patient is awake, alert, and fully oriented, in no acute distress. HEAD: Normal with no signs of trauma. EYES: PERRL, extraocular movements intact, sclera anicteric, conjunctiva clear. ENT: Ears normal, oropharynx clear without exudates, moist mucous membranes. NECK: Trachea midline, full range of motion, supple. LUNGS: decreased BS BL, no wheezes, no crackles, no accessory muscle use. HEART: Regular rate and rhythm, S1, S2 without murmur, rub or gallop. ABDOMEN: Soft, nontender, nondistended, normoactive bowel sounds, no guarding, no rebound, no hepatosplenomegaly, no masses. EXTREMITIES: 2+ pulses, warm, well-perfused, no edema. NEUROLOGICAL: Cranial nerves II through XII grossly intact. Normal speech, gait not observed. PSYCH: Normal mood, normal affect. SKIN: Warm, dry, normal turgor, no rashes or lesions noted CBCD WBC 11.4 K/mm3 (4.0-10.0) H 12/10/19 07:32 RBC 4.67 M/mm3 (4.00-5.60) 12/10/19 07:32 Hgb 13.1 GM/dL (11.7-16.9) 12/10/19 07:32 Hct 38.9 % (35.4-49) 12/10/19 07:32 MCV 83.2 fl (80-96) 12/10/19 07:32 MCHC 33.7 g/dl (32.0-35.9) 12/10/19 07:32 RDW 13.2 % (11.9-15.9) 12/10/19 07:32 Plt Count 207 K/MM3 (134-434) 12/10/19 07:32 MPV 9.2 fl (7.5-11.1) 12/10/19 07:32 CMP Sodium 135 mmol/L (136-145) L 12/10/19 07:32 Potassium 4.4 mmol/L (3.5-5.1) 12/10/19 07:32 Chloride 103 mmol/L (98-107) 12/10/19 07:32 Carbon Dioxide 23 mmol/L (21-32) 12/10/19 07:32 Anion Gap 10 MMOL/L (8-16) 12/10/19 07:32 BUN 16.0 mg/dL (7-18) 12/10/19 07:32 Creatinine 1.1 mg/dL (0.55-1.3) 12/10/19 07:32 Random Glucose 146 mg/dL (74-106) H 12/10/19 07:32 Calcium 8.0 mg/dL (8.5-10.1) L 12/10/19 07:32 Total Bilirubin 0.7 mg/dL (0.2-1) 12/10/19 07:32 AST 53 U/L (15-37) H 12/10/19 07:32 ALT 52 U/L (13-61) 12/10/19 07:32 Alkaline Phosphatase 63 U/L (45-117) 12/10/19 07:32 Total Protein 6.7 g/dl (6.4-8.2) 12/10/19 07:32 Albumin 2.7 g/dl (3.4-5.0) L 12/10/19 07:32 CARDIAC ENZYMES Creatine Kinase 423 U/L (26-308) H 12/09/19 19:49 Troponin I < 0.02 ng/ml (0.00-0.05) 12/09/19 19:49 Current Medications Generic Name Dose Route Start Last Admin Trade Name Freq PRN Reason Stop Dose Admin Acetaminophen 650 mg 12/10/19 04:17 12/10/19 04:35 Tylenol - PO 650 mg Q4H PRN Administration FEVER Amlodipine Besylate 10 mg 12/10/19 10:00 12/10/19 10:18 Norvasc - PO 10 mg DAILY MAYNOR Administration Ascorbic Acid 1,000 mg 12/10/19 10:00 12/10/19 10:18 Vitamin C - PO 1,000 mg BID MAYNOR Administration Budesonide/Formoterol Fumarate 2 puff 12/10/19 10:00 12/10/19 10:22 Symbicort 160/4.5mcg - IH 2 puff BID MAYNOR Administration Enoxaparin Sodium 80 mg 12/10/19 05:30 12/10/19 05:40 Lovenox - SQ 80 mg Q12H MAYNOR Administration Zinc Sulfate 220 mg 12/10/19 10:00 12/10/19 10:18 Orazinc - PO 220 mg BID MAYNOR Administration Home Medications Medication Instructions Recorded Amlodipine Besylate [Norvasc -] 10 mg PO DAILY 12/07/19 Ascorbic Acid [Vitamin C -] 1,000 mg PO BID #28 tablet 12/08/19 Budesonide/Formeterol Fumarate 2 puff IH BID #1 inhaler 12/08/19 [SYMBICORT 160/4.5mcg -] Zinc Sulfate [Orazinc -] 220 mg PO BID #28 capsule 12/08/19 Laboratory Tests 12/06/19 12/07/19 12/08/19 21:30 02:35 06:11 INR D-Dimer 717 H 644 H Lactic Acid Ferritin AST ALT LD Total Creatine Kinase C-Reactive Protein COVID-19 (DEVORAH) Detected H 12/08/19 12/09/19 12/09/19 06:11 19:15 19:49 INR D-Dimer Lactic Acid Ferritin 782.4 H AST ALT LD Total 265 H 340 H Creatine Kinase 423 H C-Reactive Protein 4.7 H 8.6 H COVID-19 (DEVORAH) Pending 0812/09/19 12/09/19 19:49 19:49 19:49 INR 0.93 D-Dimer Lactic Acid 1.4 Ferritin 903.8 H AST ALT LD Total Creatine Kinase C-Reactive Protein COVID-19 (DEVORAH) 12/09/19 12/10/19 19:49 07:32 INR D-Dimer 1329 H Lactic Acid Ferritin 1008.2 H AST 53 H ALT 52 LD Total 332 H Creatine Kinase C-Reactive Protein COVID-19 (DEVORAH) Chest CT: 12/07/2019; groundglass infiltrates throughout both lungs consistent with covid [address] of abdomen: no ICN pathology Assessment and plan: This patient is a 69yom with PMHx of HTN and recent admission for COVID (12/05- 12/07), returning with SOB and chest pain. #COVID-19 pneumonitis: follow markers, LDH, ferritin, c-reactive protein, on s teroid, lovenox, will rocephin/doxy #Hx of HTN: Continue home Norvasc DVT Px: Lovenox 80mg BID Visit type - Emergency Visit Emergency Visit: Yes ED Registration Date: 12/09/19 Care time: The patient presented to the Emergency Department on the above date and was hospitalized for further evaluation of their emergent condition. - New Patient This patient is new to me today: Yes Date on this admission: 12/10/19 - Critical Care Critical Care patient: No - Discharge Referral Referred to [facility] Med P.C.: No - Medication Review Med list reviewed for High Risk Meds patients 65 and older: Yes
[2019-12-10] MEDS: methylPREDNISolone NA SUCC 40 MG/1 ML VIAL IVPUSH SCH ×2 (13:28→21:25)
[2019-12-10] MEDS: CHOLECALCIFEROL (VIT D3) 1,000 UNIT (25 MCG) TABLET PO SCH (13:28)
--- NOTE | 2019-12-10 14:27 | CON.PULM ---
Consult Consult Specialty:: PULM/CCM Referred by:: Hospitalist Reason for Consultation:: SOB - History of Present Illness Chief Complaint: SOB & CP History of Present Illness: 69 M, HTN and recent admission for COVID (12/05-12/07). Does not seem he received any supportive treatment for COVID19. No apparent AC on discharge. He completed a 5 day course of Azithromycin as an outpatient. Admitted due to pleuritic type CP and SOB. Elevated inflammatory markers and Ddimer. Previous CT chest was consistent ith capillary leak syndrome. - History Source History Provided By: Patient Limitations to Obtaining History: Language Barrier - Past Medical History Cardio/Vascular: Yes: HTN Gastrointestinal: Yes: GERD Renal/: Yes: Renal Calculi - Alcohol/Substance Use Hx Alcohol Use: No - Smoking History Smoking history: Never smoked Have you smoked in the past 12 months: No If you are a former smoker, when did you quit?: 12 YEARS - Social History Usual Living Arrangement: With Spouse ADL: Independent Occupation: retires History of Recent Travel: Yes (returned from on 12/03/19) Home Medications - Allergies Allergies/Adverse Reactions: Allergies Allergy/AdvReac Type Severity Reaction Status Date / Time No Known Drug Allergies Allergy Verified 12/09/19 17:53 - Home Medications Home Medications: Ambulatory Orders Amlodipine Besylate [Norvasc -] 10 mg PO DAILY 12/07/19 Ascorbic Acid [Vitamin C -] 1,000 mg PO BID #28 tablet 12/08/19 Budesonide/Formeterol Fumarate [SYMBICORT 160/4.5mcg -] 2 puff IH BID #1 inhaler 12/08/19 Zinc Sulfate [Orazinc -] 220 mg PO BID #28 capsule 12/08/19 Review of Systems - Review of Systems Constitutional: reports: Malaise. denies: Chills, Fever, Night Sweats Eyes: reports: No Symptoms HENT: reports: No Symptoms Neck: reports: No Symptoms Cardiovascular: reports: Chest Pain, Shortness of Breath. denies: Edema, Palpitations Respiratory: reports: Cough, SOB, SOB on Exertion. denies: Hemoptysis, Orthopnea, PND, Snoring, Wheezing Gastrointestinal: reports: No Symptoms Genitourinary: reports: No Symptoms Breasts: reports: No Symptoms Reported Musculoskeletal: reports: No Symptoms Integumentary: reports: No Symptoms Neurological: reports: No Symptoms Endocrine: reports: No Symptoms Hematology/Lymphatic: reports: No Symptoms Psychiatric: reports: No Symptoms Physical Exam Vital Sings: Vital Signs Temperature 103.1 F H 12/10/19 13:30 Pulse Rate 95 H 12/10/19 13:30 Respiratory Rate 20 12/10/19 13:30 Blood Pressure 142/85 12/10/19 13:30 O2 Sat by Pulse Oximetry (%) 95 12/10/19 13:30 Constitutional: Yes: No Distress, Calm Eyes: Yes: Conjunctiva Clear, EOM Intact HENT: Yes: Atraumatic, Normocephalic Neck: Yes: Supple, Trachea Midline Cardiovascular: Yes: Regular Rate and Rhythm Respiratory: Yes: Cough, Diminished, On Nasal O2, Rhonchi, SOB, SOB on Exertion, Tachypnea. No: Accessory Muscle Use, Rales, Stridor, Wheezes ...Inspection: Yes: WNL ...Clubbing: No Gastrointestinal: Yes: Normal Bowel Sounds, Soft, Abdomen, Obese Renal/: Yes: WNL Musculoskeletal: Yes: WNL Extremities: Yes: WNL Edema: No Peripheral Pulses WNL: Yes Integumentary: Yes: WNL Neurological: Yes: WNL, Alert, Oriented ...Motor Strength: WNL Psychiatric: Yes: WNL, Alert, Oriented Labs: CBC, BMP 12/10/19 07:32 12/10/19 07:32 Imaging - Results Chest X-ray: Report Reviewed, Image Reviewed Cat Scan: Report Reviewed, Image Reviewed Problem List - Problems (1) COVID-19 Code(s): U07.1 - COVID POSITIVE (2) Chest pain Code(s): R07.9 - CHEST PAIN, UNSPECIFIED (3) SOB (shortness of breath) Code(s): R06.02 - SHORTNESS OF BREATH (4) COVID-19 virus detected Code(s): U07.1 - COVID POSITIVE (5) HTN (hypertension) Code(s): I10 - ESSENTIAL (PRIMARY) HYPERTENSION (6) Hypoxemia Code(s): R09.02 - HYPOXEMIA (7) Viral syndrome Code(s): B34.9 - VIRAL INFECTION, UNSPECIFIED Assessment/Plan IMP: Low clinical of significant VTE burden but at risk due to COVID19. At present stable on full dose Lovenox PLAN: Lovenox BID Supplemental O2 as needed Can offer Convalescent Plasma If condition worsens can offer Remdesevir BD [place] PRN Steroids DOAC on discharge Follow inflammatory markers Will follow Thank you. Dr Mendez
--- NOTE | 2019-12-10 16:39 | PN ---
Progress Note (short form) - Note Progress Note: ID CONSULT DICTATED
[2019-12-10] MEDS ORDERED: DEXTROSE 5%-WATER - 50 ML IVPB ONE (18:56)
[2019-12-10] MEDS ORDERED: cefTRIAXone SODIUM 1 GM VIAL ONE (18:56)
[2019-12-10] MEDS: CEFTRIAXONE 1 GM in DEXTROSE 5%-WATER - 50 ML IVPB SCH (19:01)
--- NOTE | 2019-12-10 19:05 | CONS ---
INFECTIOUS DISEASE CONSULTATION DATE OF CONSULTATION: DATE OF DICTATION: 12/10/2019 The patient is a 69-year-old male who is evaluated for COVID-19 pneumonitis. He was recently hospitalized at [facility] from December 05 through December 07, after presenting with shortness of breath. He had returned from the [facility] on December 03, 2019, with complaints of fevers, chills, dry cough, and lethargy. Family had noted him to be more confused. He was prescribed a course of Zithromax which he took as an outpatient. He was admitted to the hospital from December 05 through December 07. At that time, he was treated with steroids, ceftriaxone, and doxycycline. He was not felt to meet criteria for treatment for COVID-19. He was discharged home. The patient was returned to the hospital by his family on December 09, 2019, with reports of worsening shortness of breath and confusion. CAT scan of the head was performed and was negative for acute infarct or bleed. A CAT scan of the chest showed some patchy ground glass infiltrates in the periphery of the lungs bilaterally. In addition, he was noted to have elevated inflammatory markers. At the present time, the patient is awake and alert. He has been oxygenating. His O2 saturation had dropped to 94% on 2 L nasal cannula, but at the present time, it is at 95% on 3 L nasal cannula. He is awake. He offers no complaints. He appears to be oriented. PAST MEDICAL HISTORY: Positive for hypertension, gastroesophageal reflux, recently diagnosed COVID-19 positive with a positive serology on December 05. ALLERGIES: No known allergies. MEDICATIONS: At the present time include Lovenox, amlodipine, Tylenol, zinc, methylprednisolone, ascorbic acid. SOCIAL HISTORY: He resides at home in the community. Recent travel as described. He is a former smoker, stopped 30 years ago. SYSTEMS REVIEW: Neurologic: Positive for confusion. No loss of consciousness, seizure activity, or focal weakness. Cardiac: Negative chest pain and palpitations. Respiratory: As per HPI. Gastrointestinal: Negative vomiting or diarrhea. Genitourinary: Negative for urinary tract infection. LABORATORY DATA: White count 11.4, hematocrit 38.9, platelets 207. Creatinine 1.1. D-dimer 1329. Ferritin 1000. LDH 332. C-reactive protein 8.6. Legionella antigen from December 07, 2019 negative. Blood and urine cultures are pending. PHYSICAL EXAMINATION: General: He is awake. He is seated in bed. He is in no acute distress on room air. Vital Signs: T-max 102.7; blood pressure 141/74; pulse 89, regular; respirations 20 per minute. HEENT: Sclerae anicteric. Heart: Sounds S1, S2. Lungs: Diminished breath sounds bilaterally. Abdomen: Soft and nontender. Extremities: Negative for edema. IMPRESSION: 1. COVID-19 pneumonitis. 2. Toxic metabolic encephalopathy. Continue supplemental oxygen, corticosteroids. Consideration for convalescent plasma. Will discuss with Pulmonary. May also be a candidate for remdesivir. Maintain airborne precautions. Monitor inflammatory markers. Thank you for the kind referral. PANCHO PEREZ M.D. [id number]
[2019-12-11] MEDS: ENOXAPARIN NA (PORCINE) 80 MG/0.8 ML DISP.SYRIN SQ SCH ×2 (05:25→17:17)
[2019-12-11] MEDS ORDERED: DEXTROSE 5%-WATER - 50 ML IVPB ONE (10:29)
[2019-12-11] MEDS ORDERED: cefTRIAXone SODIUM 1 GM VIAL ONE (10:29)
[2019-12-11] MEDS: BUDESONIDE/FORMETEROL FUMARATE 160/4.5 mcg INHALER IH SCH ×3 (10:52→22:15)
[2019-12-11] MEDS: ASCORBIC ACID 500 MG TABLET (FP) PO SCH ×2 (10:52→21:49)
[2019-12-11] MEDS: amLODIPine BESYLATE 10 MG TABLET (FP) PO SCH (10:52)
[2019-12-11] MEDS: ZINC SULFATE 220 MG CAPSULE (FP) PO SCH ×2 (10:52→21:49)
[2019-12-11] MEDS: CEFTRIAXONE 1 GM in DEXTROSE 5%-WATER - 50 ML IVPB SCH (10:52)
[2019-12-11] MEDS: CHOLECALCIFEROL (VIT D3) 1,000 UNIT (25 MCG) TABLET PO SCH (10:52)
[2019-12-11] MEDS: DOXYCYCLINE HYCLATE 100 MG CAPSULE PO SCH ×2 (10:52→17:18)
[2019-12-11] MEDS: methylPREDNISolone NA SUCC 40 MG/1 ML VIAL IVPUSH SCH ×2 (10:52→21:49)
--- NOTE | 2019-12-11 13:52 | PN ---
Progress Note (short form) - Note Progress Note: Appears clinically better today but still mildly tachypneic on NC O2. No acute events overnight. Intake & Output 12/08/19 12/09/19 12/10/19 12/11/19 23:59 23:59 23:59 23:59 Intake Total 1240 250 Output Total 555 Balance 685 250 Weight 175 lb Last Vital Signs Temp Pulse Resp BP Pulse Ox 98.9 F 78 20 148/91 94 L 12/11/19 08:42 12/11/19 08:42 12/11/19 08:43 12/11/19 08:42 12/11/19 08:43 Active Medications Acetaminophen (Tylenol -) 650 mg PO Q6H PRN PRN Reason: FEVER Last Admin: 12/10/19 13:28 Dose: 650 mg Documented by: Amlodipine Besylate (Norvasc -) 10 mg PO DAILY [facility] Last Admin: 12/11/19 10:52 Dose: 10 mg Documented by: Ascorbic Acid (Vitamin C -) 1,000 mg PO BID [facility] Last Admin: 12/11/19 10:52 Dose: 1,000 mg Documented by: Budesonide/Formoterol Fumarate (Symbicort 160/4.5mcg -) 2 puff IH BID [facility] Last Admin: 12/11/19 10:52 Dose: 2 puff Documented by: Cholecalciferol (Vitamin D3 -) 2,000 unit PO DAILY [facility] Last Admin: 12/11/19 10:52 Dose: 2,000 unit Documented by: Doxycycline Hyclate (Vibramycin -) 100 mg PO BID@1000,1800 [facility] Last Admin: 12/11/19 10:52 Dose: 100 mg Documented by: Enoxaparin Sodium (Lovenox -) 80 mg SQ Q12H [facility] Last Admin: 12/11/19 05:25 Dose: 80 mg Documented by: Ceftriaxone Sodium 1 gm/ (Dextrose) 50 mls @ 100 mls/hr IVPB DAILY [facility]; Protocol Last Admin: 12/11/19 10:52 Dose: 100 mls/hr Documented by: Methylprednisolone Sodium Succinate (Solu-Medrol -) 40 mg IVPUSH BID [facility] Last Admin: 12/11/19 10:52 Dose: 40 mg Documented by: Zinc Sulfate (Orazinc -) 220 mg PO BID [facility] Last Admin: 12/11/19 10:52 Dose: 220 mg Documented by: Constitutional: Yes: Mildly tachypneic on NC O2 Eyes: Yes: Conjunctiva Clear, EOM Intact HENT: Yes: Atraumatic, Normocephalic Neck: Yes: Supple, Trachea Midline Cardiovascular: Yes: Regular Rate and Rhythm Respiratory: Yes: Cough, Diminished, On Nasal O2, Rhonchi, SOB on Exertion, Tachypnea. No: Accessory Muscle Use, Rales, Stridor, Wheezes ...Inspection: Yes: WNL ...Clubbing: No Gastrointestinal: Yes: Normal Bowel Sounds, Soft, Abdomen, Obese Renal/: Yes: WNL Musculoskeletal: Yes: WNL Extremities: Yes: WNL Edema: No Peripheral Pulses WNL: Yes Integumentary: Yes: WNL Neurological: Yes: WNL, Alert, Oriented ...Motor Strength: WNL Psychiatric: Yes: WNL, Alert, Oriented Labs: Laboratory Results - last 24 hr 12/09/19 19:15 COVID-19 (DEVORAH) Not detected Imaging - Results Chest X-ray: Report Reviewed, Image Reviewed Cat Scan: Report Reviewed, Image Reviewed Problem List - Problems (1) COVID-19 Code(s): U07.1 - COVID POSITIVE (2) Chest pain Code(s): R07.9 - CHEST PAIN, UNSPECIFIED (3) SOB (shortness of breath) Code(s): R06.02 - SHORTNESS OF BREATH (4) COVID-19 virus detected Code(s): U07.1 - COVID POSITIVE (5) HTN (hypertension) Code(s): I10 - ESSENTIAL (PRIMARY) HYPERTENSION (6) Hypoxemia Code(s): R09.02 - HYPOXEMIA (7) Viral syndrome Code(s): B34.9 - VIRAL INFECTION, UNSPECIFIED Assessment/Plan IMP: Low clinical of significant VTE burden but at risk due to COVID19. At present stable on full dose Lovenox PLAN: Lovenox BID Supplemental O2 as needed Would offer Convalescent Plasma if consents If condition worsens can offer Remdesevir BD TX PRN Steroids DOAC on discharge Follow inflammatory markers Dr Mendez Problem List - Problems (1) COVID-19 Code(s): U07.1 - COVID POSITIVE (2) Chest pain Code(s): R07.9 - CHEST PAIN, UNSPECIFIED Qualifiers: Chest pain type: chest pain on breathing Qualified Code(s): R07.1 - Chest pain on breathing; R07.81 - Pleurodynia (3) SOB (shortness of breath) Code(s): R06.02 - SHORTNESS OF BREATH (4) COVID-19 virus detected Code(s): U07.1 - COVID POSITIVE (5) HTN (hypertension) Code(s): I10 - ESSENTIAL (PRIMARY) HYPERTENSION (6) Hypoxemia Code(s): R09.02 - HYPOXEMIA (7) Viral syndrome Code(s): B34.9 - VIRAL INFECTION, UNSPECIFIED
--- NOTE | 2019-12-11 14:21 | PN ---
Physical Exam: SUBJECTIVE: Patient seen and examined at bedside. The patient is confused, but reports that his shortness of breath is a little better. He is on 3lpm NC, up from 2lpm NC yesterday. He denies fever/chills or headache. Ferritin increased from 903 yesterday to 1008 today, but LD Total decreased from 340 yesterday to 332 today. As the patient was confused and unable to make his own decisions (A&Ox1, name only), the patient's daughter was called to ask if she can consent for the patient to receive plasma therapy. The patient's daughter responded that she would like to wait and see how her father, the patient, does first before trying the plasma therapy; and, she said that "new treatments scare me". The risks and benefits of the plasma therapy were explained to her over the phone. COVID test from 12/09/2019 came back negative; however, the COVID test from 12/06/2019 came back positive, so the 12/09/2019 test is extremely likely a false negative result. OBJECTIVE: Vital Signs Period Temp Pulse Resp BP Sys/Harkins Pulse Ox Last 24 Hr 98.0 F-101 F 71-87 20-21 125-148/73-92 94-95 GENERAL: The patient is confused, but in no acute distress. HEAD: Normal with no signs of trauma. EYES: Extraocular movements intact. No ptosis. ENT: Ears normal, nares patent, oropharynx clear without exudates, moist mucous membranes. NECK: Trachea midline, full range of motion, supple. LUNGS: Decreased breath sounds bilaterally. HEART: Regular rate and rhythm, S1, S2 without murmur, rub or gallop. ABDOMEN: Soft, nontender, nondistended, normoactive bowel sounds, no guarding, no rebound, no masses. EXTREMITIES: 2+ pulses, warm, well-perfused, no edema. NEUROLOGICAL: Normal speech, gait not observed. PSYCH: Normal mood, normal affect. SKIN: Warm, dry, normal turgor, no rashes or lesions noted Laboratory Results - last 24 hr 12/09/19 19:15 COVID-19 (DEVORAH) Not detected Active Medications Generic Name Dose Route Start Last Admin Trade Name Freq PRN Reason Stop Dose Admin Acetaminophen 650 mg 12/10/19 12:34 12/10/19 13:28 Tylenol - PO 650 mg Q6H PRN Administration FEVER Amlodipine Besylate 10 mg 12/10/19 10:00 12/11/19 10:52 Norvasc - PO 10 mg DAILY MAYNOR Administration Ascorbic Acid 1,000 mg 12/10/19 10:00 12/11/19 10:52 Vitamin C - PO 1,000 mg BID MAYNOR Administration Budesonide/Formoterol Fumarate 2 puff 12/10/19 10:00 12/11/19 10:52 Symbicort 160/4.5mcg - IH 2 puff BID MAYNOR Administration Cholecalciferol 2,000 unit 12/10/19 12:00 12/11/19 10:52 Vitamin D3 - PO 2,000 unit DAILY MAYNOR Administration Doxycycline Hyclate 100 mg 12/11/19 10:00 12/11/19 10:52 Vibramycin - PO 100 mg BID@1000,1800 MAYNOR Administration Enoxaparin Sodium 80 mg 12/10/19 05:30 12/11/19 05:25 Lovenox - SQ 80 mg Q12H MAYNOR Administration Ceftriaxone Sodium 1 gm/ 50 mls @ 100 mls/hr 12/10/19 18:45 12/11/19 10:52 Dextrose IVPB 100 mls/hr DAILY MAYNOR Administration Protocol Methylprednisolone Sodium Succinate 40 mg 12/10/19 11:54 12/11/19 10:52 Solu-Medrol - IVPUSH 40 mg BID MAYNOR Administration Zinc Sulfate 220 mg 12/10/19 10:00 12/11/19 10:52 Orazinc - PO 220 mg BID MYANOR Administration ASSESSMENT/PLAN: 69 year old male patient with past medical history that includes HTN, who presented to the emergency room with shortness of breath. 1. COVID Pneumonitis - 12/06/2019 COVID test positive - 12/07/[address] shows peripheral ground glass opacities consistent with COVID pneumonitis - Lovenox BID, Supplemental O2 as needed, Steroids, Vitamin D3, Vitamin C, Zinc - On Ceftriaxone - Convalescent Plasma offered but patient's daughter requested that she would like to wait and see how her father does, as she said "new treatments scare me". (Patient is confused and unable to make informed decisions) - Remdesevir if condition worsens - Monitoring inflammatory markers 2. HTN - Norvas # FEN - Monitoring electrolytes, Sodium controlled diet DVT PPx - Lovenox 80mg BID Visit type - Emergency Visit Emergency Visit: Yes ED Registration Date: 12/09/19 Care time: The patient presented to the Emergency Department on the above date and was hospitalized for further evaluation of their emergent condition. - New Patient This patient is new to me today: Yes Date on this admission: 12/11/19 - Critical Care Critical Care patient: No - Discharge Referral Referred to [facility] Med P.C.: No - Medication Review Med list reviewed for High Risk Meds patients 65 and older: Yes ATTENDING PHYSICIAN STATEMENT I saw and evaluated the patient. I reviewed the resident's note and discussed the case with the resident. I agree with the resident's findings and plan as documented. SUBJECTIVE: OBJECTIVE: ASSESSMENT AND PLAN:
--- NOTE | 2019-12-11 16:44 | PN ---
Teaching Attending Note Name of Resident: Gavin Skelton ATTENDING PHYSICIAN STATEMENT I saw and evaluated the patient. I reviewed the resident's note and discussed the case with the resident. I agree with the resident's findings and plan as documented. SUBJECTIVE: clinically improving but mildly tachypneic on NC O2. OBJECTIVE: Vital Signs Temperature 98.1 F 12/11/19 12:00 Pulse Rate 67 12/11/19 12:00 Respiratory Rate 20 12/11/19 12:00 Blood Pressure 117/59 L 12/11/19 12:00 O2 Sat by Pulse Oximetry (%) 94 L 12/11/19 12:00 PE: per resident's note CBCD WBC 11.4 K/mm3 (4.0-10.0) H 12/10/19 07:32 RBC 4.67 M/mm3 (4.00-5.60) 12/10/19 07:32 Hgb 13.1 GM/dL (11.7-16.9) 12/10/19 07:32 Hct 38.9 % (35.4-49) 12/10/19 07:32 MCV 83.2 fl (80-96) 12/10/19 07:32 MCHC 33.7 g/dl (32.0-35.9) 12/10/19 07:32 RDW 13.2 % (11.9-15.9) 12/10/19 07:32 Plt Count 207 K/MM3 (134-434) 12/10/19 07:32 MPV 9.2 fl (7.5-11.1) 12/10/19 07:32 CMP Sodium 135 mmol/L (136-145) L 12/10/19 07:32 Potassium 4.4 mmol/L (3.5-5.1) 12/10/19 07:32 Chloride 103 mmol/L (98-107) 12/10/19 07:32 Carbon Dioxide 23 mmol/L (21-32) 12/10/19 07:32 Anion Gap 10 MMOL/L (8-16) 12/10/19 07:32 BUN 16.0 mg/dL (7-18) 12/10/19 07:32 Creatinine 1.1 mg/dL (0.55-1.3) 12/10/19 07:32 Random Glucose 146 mg/dL (74-106) H 12/10/19 07:32 Calcium 8.0 mg/dL (8.5-10.1) L 12/10/19 07:32 Total Bilirubin 0.7 mg/dL (0.2-1) 12/10/19 07:32 AST 53 U/L (15-37) H 12/10/19 07:32 ALT 52 U/L (13-61) 12/10/19 07:32 Alkaline Phosphatase 63 U/L (45-117) 12/10/19 07:32 Total Protein 6.7 g/dl (6.4-8.2) 12/10/19 07:32 Albumin 2.7 g/dl (3.4-5.0) L 12/10/19 07:32 CARDIAC ENZYMES Creatine Kinase 423 U/L (26-308) H 12/09/19 19:49 Troponin I < 0.02 ng/ml (0.00-0.05) 12/09/19 19:49 Current Medications Generic Name Dose Route Start Last Admin Trade Name Freq PRN Reason Stop Dose Admin Acetaminophen 650 mg 12/10/19 12:34 12/10/19 13:28 Tylenol - PO 650 mg Q6H PRN Administration FEVER Amlodipine Besylate 10 mg 12/10/19 10:00 12/11/19 10:52 Norvasc - PO 10 mg DAILY MAYNOR Administration Ascorbic Acid 1,000 mg 12/10/19 10:00 12/11/19 10:52 Vitamin C - PO 1,000 mg BID MAYNOR Administration Budesonide/Formoterol Fumarate 2 puff 12/10/19 10:00 12/11/19 10:52 Symbicort 160/4.5mcg - IH 2 puff BID MAYNOR Administration Cholecalciferol 2,000 unit 12/10/19 12:00 12/11/19 10:52 Vitamin D3 - PO 2,000 unit DAILY MAYNOR Administration Doxycycline Hyclate 100 mg 12/11/19 10:00 12/11/19 10:52 Vibramycin - PO 100 mg BID@1000,1800 MAYNOR Administration Enoxaparin Sodium 80 mg 12/10/19 05:30 12/11/19 05:25 Lovenox - SQ 80 mg Q12H MAYNOR Administration Ceftriaxone Sodium 1 gm/ 50 mls @ 100 mls/hr 12/10/19 18:45 12/11/19 10:52 Dextrose IVPB 100 mls/hr DAILY MAYNOR Administration Protocol Methylprednisolone Sodium Succinate 40 mg 12/10/19 11:54 12/11/19 10:52 Solu-Medrol - IVPUSH 40 mg BID MAYNOR Administration Zinc Sulfate 220 mg 12/10/19 10:00 12/11/19 10:52 Orazinc - PO 220 mg BID MYANOR Administration Home Medications Medication Instructions Recorded Amlodipine Besylate [Norvasc -] 10 mg PO DAILY 12/07/19 Ascorbic Acid [Vitamin C -] 1,000 mg PO BID #28 tablet 12/08/19 Budesonide/Formeterol Fumarate 2 puff IH BID #1 inhaler 12/08/19 [SYMBICORT 160/4.5mcg -] Zinc Sulfate [Orazinc -] 220 mg PO BID #28 capsule 12/08/19 Microbiology 12/11/19 02:15 Sputum - Expectorated Gram Stain - Final 12/09/19 21:55 Urine - Urine Clean Catch Urine Culture - Final NO GROWTH OBTAINED 12/10/19 04:49 Blood - Peripheral Venous Blood Culture - Preliminary NO GROWTH OBTAINED AFTER 24 HOURS, INCUBATION TO CONTINUE FOR 4 DAYS. 12/10/19 04:29 Blood - Peripheral Venous Blood Culture - Preliminary NO GROWTH OBTAINED AFTER 24 HOURS, INCUBATION TO CONTINUE FOR [address]: 12/07/2019; groundglass infiltrates throughout both lungs consistent with covid [address] of abdomen: no ICN pathology Assessment and plan: This patient is a 69yom with PMHx of HTN and recent admission for COVID (12/05- 12/07), returning with SOB and chest pain. #COVID-19 pneumonitis: continue to follow markers, LDH, ferritin, c-reactive protein, on steroid, lovenox, on rocephin/doxy , as per pulm. if he consents to covalesent plasma will give, if he does not improve will offer remdisivir #Hx of HTN: Continue home Norvasc DVT Px: Lovenox 80mg BID
--- NOTE | 2019-12-11 18:34 | EKG ---
Test Reason : Blood Pressure : / mmHG Vent. Rate : 085 BPM Atrial Rate : 085 BPM P-R Int : 150 ms QRS Dur : 092 ms QT Int : 376 ms P-R-T Axes : 041 -62 032 degrees QTc Int : 447 ms NORMAL SINUS RHYTHM LEFT ATRIAL ENLARGEMENT LEFT ANTERIOR FASCICULAR BLOCK POSSIBLE ANTEROLATERAL INFARCT (CITED ON OR BEFORE 06-DEC-2019) ABNORMAL ECG Confirmed by MD ANGELA, PRISCILA ([id number]) on 12/11/2019 6:33:59 PM Referred By: Confirmed By:PRISCILA MILLER MD
[2019-12-12] MEDS: ENOXAPARIN NA (PORCINE) 80 MG/0.8 ML DISP.SYRIN SQ SCH ×2 (05:58→17:47)
[2019-12-12] MEDS ORDERED: cefTRIAXone SODIUM 1 GM VIAL ONE (09:26)
[2019-12-12] MEDS ORDERED: DEXTROSE 5%-WATER - 50 ML IVPB ONE (09:27)
[2019-12-12] MEDS: ZINC SULFATE 220 MG CAPSULE (FP) PO SCH ×2 (09:33→22:18)
[2019-12-12] MEDS: CEFTRIAXONE 1 GM in DEXTROSE 5%-WATER - 50 ML IVPB SCH (09:33)
[2019-12-12] MEDS: CHOLECALCIFEROL (VIT D3) 1,000 UNIT (25 MCG) TABLET PO SCH (09:33)
[2019-12-12] MEDS: amLODIPine BESYLATE 10 MG TABLET (FP) PO SCH (09:34)
[2019-12-12] MEDS: DOXYCYCLINE HYCLATE 100 MG CAPSULE PO SCH ×2 (09:34→17:45)
[2019-12-12] MEDS: methylPREDNISolone NA SUCC 40 MG/1 ML VIAL IVPUSH SCH ×2 (09:34→22:18)
[2019-12-12] MEDS: ASCORBIC ACID 500 MG TABLET (FP) PO SCH ×2 (09:34→22:18)
[2019-12-12 09:36] LABS: HEMATOCRIT 40.1 % (35.4-49); HEMOGLOBIN 13.3 GM/dL (11.7-16.9); MCH 27.8 pg (25.7-33.7); MCHC 33.2 g/dl (32.0-35.9); MEAN CELL VOLUME 83.6 fl (80-96); MEAN PLT VOLUME 8.9 fl (7.5-11.1); PLATELET COUNT 282 K/MM3 (134-434); RDW 13.8 % (11.9-15.9); WHITE BLOOD COUNT 16.1 K/mm3 (4.0-10.0)
[2019-12-12 10:05] LABS: ALBUMIN 2.8 g/dl (3.4-5.0); BILIRUBIN,TOTAL 0.7 mg/dL (0.2-1); BLOOD UREA NITROGEN 27.1 mg/dL (7-18); CALCIUM 8.8 mg/dL (8.5-10.1); CREATININE 1.2 mg/dL (0.55-1.3); MAGNESIUM 2.6 mg/dL (1.8-2.4); PHOSPHOROUS 3.9 mg/dL (2.5-4.9); POTASSIUM 4.5 mmol/L (3.5-5.1); TOT PROT 7.6 g/dl (6.4-8.2)
[2019-12-12] MEDS: BUDESONIDE/FORMETEROL FUMARATE 160/4.5 mcg INHALER IH SCH ×3 (11:41→22:40)
--- NOTE | 2019-12-12 14:52 | PN ---
Progress Note, Physician History of Present Illness: RESTING COMFORTABLY IN BED BREATHING NON-LABORED ON 3L NC O2SAT 96% AFEBRILE, ELEVATED WBC ON STEROIDS SPUTUM NORMAL RIDGE - Current Medication List Current Medications: Active Medications Acetaminophen (Tylenol -) 650 mg PO Q6H PRN PRN Reason: FEVER Last Admin: 12/10/19 13:28 Dose: 650 mg Documented by: Amlodipine Besylate (Norvasc -) 10 mg PO DAILY [facility] Last Admin: 12/12/19 09:34 Dose: 10 mg Documented by: Ascorbic Acid (Vitamin C -) 1,000 mg PO BID [facility] Last Admin: 12/12/19 09:34 Dose: 1,000 mg Documented by: Budesonide/Formoterol Fumarate (Symbicort 160/4.5mcg -) 2 puff IH BID [facility] Last Admin: 12/12/19 11:41 Dose: Not Given Documented by: Cholecalciferol (Vitamin D3 -) 2,000 unit PO DAILY [facility] Last Admin: 12/12/19 09:33 Dose: 2,000 unit Documented by: Doxycycline Hyclate (Vibramycin -) 100 mg PO BID@1000,1800 [facility] Last Admin: 12/12/19 09:34 Dose: 100 mg Documented by: Enoxaparin Sodium (Lovenox -) 80 mg SQ Q12H [facility] Last Admin: 12/12/19 05:58 Dose: 80 mg Documented by: Ceftriaxone Sodium 1 gm/ (Dextrose) 50 mls @ 100 mls/hr IVPB DAILY [facility]; Protocol Last Admin: 12/12/19 09:33 Dose: 100 mls/hr Documented by: Methylprednisolone Sodium Succinate (Solu-Medrol -) 40 mg IVPUSH BID [facility] Last Admin: 12/12/19 09:34 Dose: 40 mg Documented by: Zinc Sulfate (Orazinc -) 220 mg PO BID [facility] Last Admin: 12/12/19 09:33 Dose: 220 mg Documented by: - Objective Vital Signs: Vital Signs Temperature 97.6 F 12/12/19 10:00 Pulse Rate 72 12/12/19 10:00 Respiratory Rate 23 H 12/12/19 10:00 Blood Pressure 122/76 12/12/19 10:00 O2 Sat by Pulse Oximetry (%) 95 12/12/19 10:00 Constitutional: Yes: No Distress Eyes: Yes: Conjunctiva Clear Cardiovascular: Yes: Regular Rate and Rhythm, S1, S2 Respiratory: Yes: Rhonchi Gastrointestinal: Yes: Normal Bowel Sounds, Soft. No: Tenderness Edema: No Labs: CBC, BMP 12/12/19 08:26 12/12/19 08:26 INR, PTT INR 0.93 (0.83-1.09) 12/09/19 19:49 Assessment/Plan COVID-19 PNEUMONITIS TOXIC METABOLIC ENCEPHALOPATHY CONTINUE STEROIDS/O2 CEFTRIAXONE/DOXYCYCLINE AGREE WITH C-PLASMA IF PT CONSENTS
--- NOTE | 2019-12-12 17:52 | PN ---
Physical Exam: SUBJECTIVE: Patient seen and examined at bedside. The patient was talked to using a granite polisher machine, translate # [id number]. He is A&Ox3 today, and not confused. He denies fever/chills and reports having no shortness of breath on his oxygen. His labs look better today compared to yesterday. OBJECTIVE: Vital Signs Period Temp Pulse Resp BP Sys/Harkins Pulse Ox Last 24 Hr 97.6 F-98.7 F 61-76 22-23 121-133/52-76 95-96 GENERAL: The patient is confused, but in no acute distress. HEAD: Normal with no signs of trauma. EYES: Extraocular movements intact. No ptosis. ENT: Ears normal, nares patent, oropharynx clear without exudates, moist mucous membranes. NECK: Trachea midline, full range of motion, supple. LUNGS: Decreased breath sounds bilaterally. HEART: Regular rate and rhythm, S1, S2 without murmur, rub or gallop. ABDOMEN: Soft, nontender, nondistended, normoactive bowel sounds, no guarding, n o rebound, no masses. EXTREMITIES: 2+ pulses, warm, well-perfused, no edema. NEUROLOGICAL: Normal speech, gait not observed. PSYCH: Normal mood, normal affect. SKIN: Warm, dry, normal turgor, no rashes or lesions noted Laboratory Results - last 24 hr 12/12/19 12/12/19 12/12/19 08:26 08:26 08:26 WBC 16.1 H RBC 4.80 Hgb 13.3 Hct 40.1 MCV 83.6 MCH 27.8 MCHC 33.2 RDW 13.8 Plt Count 282 D MPV 8.9 D-Dimer 596 H Sodium 135 L Potassium 4.5 Chloride 101 Carbon Dioxide 26 Anion Gap 8 BUN 27.1 H Creatinine 1.2 Est GFR (CKD-EPI)AfAm 71.58 Est GFR (CKD-EPI)NonAf 61.76 Random Glucose 355 H Calcium 8.8 Phosphorus 3.9 Magnesium 2.6 H Ferritin 1466.5 H Total Bilirubin 0.7 AST 29 ALT 47 Alkaline Phosphatase 72 LD Total 267 H C-Reactive Protein 8.0 H Total Protein 7.6 Albumin 2.8 L Active Medications Generic Name Dose Route Start Last Admin Trade Name Freq PRN Reason Stop Dose Admin Acetaminophen 650 mg 12/10/19 12:34 12/10/19 13:28 Tylenol - PO 650 mg Q6H PRN Administration FEVER Amlodipine Besylate 10 mg 12/10/19 10:00 12/12/19 09:34 Norvasc - PO 10 mg DAILY MAYNOR Administration Ascorbic Acid 1,000 mg 12/10/19 10:00 12/12/19 09:34 Vitamin C - PO 1,000 mg BID MAYNOR Administration Budesonide/Formoterol Fumarate 2 puff 12/10/19 10:00 12/12/19 11:41 Symbicort 160/4.5mcg - IH Not Given BID MAYNOR Cholecalciferol 2,000 unit 12/10/19 12:00 12/12/19 09:33 Vitamin D3 - PO 2,000 unit DAILY MAYNOR Administration Doxycycline Hyclate 100 mg 12/11/19 10:00 12/12/19 17:45 Vibramycin - PO 100 mg BID@1000,1800 MAY[facility] Administration Enoxaparin Sodium 80 mg 12/10/19 05:30 12/12/19 17:47 Lovenox - SQ 80 mg Q12H MAYNOR Administration Ceftriaxone Sodium 1 gm/ 50 mls @ 100 mls/hr 12/10/19 18:45 12/12/19 09:33 Dextrose IVPB 100 mls/hr DAILY MAYNOR Administration Protocol Methylprednisolone Sodium Succinate 40 mg 12/10/19 11:54 12/12/19 09:34 Solu-Medrol - IVPUSH 40 mg BID MAYNOR Administration Zinc Sulfate 220 mg 12/10/19 10:00 12/12/19 09:33 Orazinc - PO 220 mg BID MAYNOR Administration ASSESSMENT/PLAN: 69 year old male patient with past medical history that includes HTN, who presented to the emergency room with shortness of breath. 1. COVID Pneumonitis - 12/06/2019 COVID test positive - 12/07/[address] shows peripheral ground glass opacities consistent with COVID pneumonitis - Lovenox BID, Supplemental O2 as needed, Steroids, Vitamin D3, Vitamin C, Zinc - On Ceftriaxone - Convalescent Plasma offered yesterday but patient's daughter requested that she would like to wait and see how her father does, as she said "new treatments scare me". - Remdesevir if condition worsens - Monitoring inflammatory markers 2. HTN - Norvasc # FEN - Monitoring electrolytes, Sodium controlled diet DVT PPx - Lovenox 80mg BID Visit type - Emergency Visit Emergency Visit: Yes ED Registration Date: 12/09/19 Care time: The patient presented to the Emergency Department on the above date and was hospitalized for further evaluation of their emergent condition. - New Patient This patient is new to me today: No - Critical Care Critical Care patient: No - Discharge Referral Referred to [facility] Med P.C.: No - Medication Review Med list reviewed for High Risk Meds patients 65 and older: Yes ATTENDING PHYSICIAN STATEMENT I saw and evaluated the patient. I reviewed the resident's note and discussed the case with the resident. I agree with the resident's findings and plan as documented. SUBJECTIVE: OBJECTIVE: ASSESSMENT AND PLAN:
--- NOTE | 2019-12-12 18:08 | PN ---
Teaching Attending Note Name of Resident: Gavin Skelton ATTENDING PHYSICIAN STATEMENT I saw and evaluated the patient. I reviewed the resident's note and discussed the case with the resident. I agree with the resident's findings and plan as documented. SUBJECTIVE: Patient is feeling better, on NC Vital Signs Temperature 97.6 F 12/12/19 10:00 Pulse Rate 72 12/12/19 10:00 Respiratory Rate 23 H 12/12/19 10:00 Blood Pressure 122/76 12/12/19 10:00 O2 Sat by Pulse Oximetry (%) 95 12/12/19 10:00 PE: per resident's note CBCD WBC 16.1 K/mm3 (4.0-10.0) H 12/12/19 08:26 RBC 4.80 M/mm3 (4.00-5.60) 12/12/19 08:26 Hgb 13.3 GM/dL (11.7-16.9) 12/12/19 08:26 Hct 40.1 % (35.4-49) 12/12/19 08:26 MCV 83.6 fl (80-96) 12/12/19 08:26 MCHC 33.2 g/dl (32.0-35.9) 12/12/19 08:26 RDW 13.8 % (11.9-15.9) 12/12/19 08:26 Plt Count 282 K/MM3 (134-434) D 12/12/19 08:26 MPV 8.9 fl (7.5-11.1) 12/12/19 08:26 CMP Sodium 135 mmol/L (136-145) L 12/12/19 08:26 Potassium 4.5 mmol/L (3.5-5.1) 12/12/19 08:26 Chloride 101 mmol/L (98-107) 12/12/19 08:26 Carbon Dioxide 26 mmol/L (21-32) 12/12/19 08:26 Anion Gap 8 MMOL/L (8-16) 12/12/19 08:26 BUN 27.1 mg/dL (7-18) H 12/12/19 08:26 Creatinine 1.2 mg/dL (0.55-1.3) 12/12/19 08:26 Random Glucose 355 mg/dL (74-106) H 12/12/19 08:26 Calcium 8.8 mg/dL (8.5-10.1) 12/12/19 08:26 Total Bilirubin 0.7 mg/dL (0.2-1) 12/12/19 08:26 AST 29 U/L (15-37) 12/12/19 08:26 ALT 47 U/L (13-61) 12/12/19 08:26 Alkaline Phosphatase 72 U/L (45-117) 12/12/19 08:26 Total Protein 7.6 g/dl (6.4-8.2) 12/12/19 08:26 Albumin 2.8 g/dl (3.4-5.0) L 12/12/19 08:26 CARDIAC ENZYMES Creatine Kinase 423 U/L (26-308) H 12/09/19 19:49 Troponin I < 0.02 ng/ml (0.00-0.05) 12/09/19 19:49 Microbiology 12/11/19 02:15 Sputum - Expectorated Gram Stain - Final 12/11/19 02:15 Sputum - Expectorated Sputum Culture - Preliminary NORMAL RESPIRATORY RIDGE 12/10/19 04:49 Blood - Peripheral Venous Blood Culture - Preliminary NO GROWTH OBTAINED AFTER 48 HOURS, INCUBATION TO CONTINUE FOR 3 DAYS. 12/10/19 04:29 Blood - Peripheral Venous Blood Culture - Preliminary NO GROWTH OBTAINED AFTER 48 HOURS, INCUBATION TO CONTINUE FOR 3 DAYS. 12/09/19 21:55 Urine - Urine Clean Catch Urine Culture - Final NO GROWTH OBTAINED Chest CT: 12/07/2019; groundglass infiltrates throughout both lungs consistent with covid [address] of abdomen: no ICN pathology Assessment and plan: This patient is a 69yom with PMHx of HTN and recent admission for COVID (12/05- 12/07), returning with SOB and chest pain. #COVID-19 pneumonitis: continue to follow markers, LDH, ferritin, c-reactive protein, on steroid, lovenox, on rocephin/doxy , as per pulm. if he he does not improve will give covalesent plasma , is doing better now, continue to monitor #Hx of HTN: Continue home Norvasc DVT Px: Lovenox 80mg BID
[2019-12-13] MEDS: ENOXAPARIN NA (PORCINE) 80 MG/0.8 ML DISP.SYRIN SQ SCH ×2 (05:30→17:48)
[2019-12-13 08:05] LABS: HEMATOCRIT 38.4 % (35.4-49); HEMOGLOBIN 12.7 GM/dL (11.7-16.9); MCH 27.6 pg (25.7-33.7); MCHC 33.1 g/dl (32.0-35.9); MEAN CELL VOLUME 83.4 fl (80-96); MEAN PLT VOLUME 8.9 fl (7.5-11.1); PLATELET COUNT 286 K/MM3 (134-434); RBC 4.61 M/mm3 (4.00-5.60); RDW 13.9 % (11.9-15.9); WHITE BLOOD COUNT 13.3 K/mm3 (4.0-10.0)
[2019-12-13 08:31] LABS: ALBUMIN 2.8 g/dl (3.4-5.0); BILIRUBIN,TOTAL 0.5 mg/dL (0.2-1); BLOOD UREA NITROGEN 30.9 mg/dL (7-18); CALCIUM 8.6 mg/dL (8.5-10.1); CREATININE 1.2 mg/dL (0.55-1.3); MAGNESIUM 2.5 mg/dL (1.8-2.4); POTASSIUM 4.9 mmol/L (3.5-5.1)
[2019-12-13] MEDS ORDERED: cefTRIAXone SODIUM 1 GM VIAL ONE (10:32)
[2019-12-13] MEDS ORDERED: DEXTROSE 5%-WATER - 50 ML IVPB ONE (10:33)
[2019-12-13] MEDS: amLODIPine BESYLATE 10 MG TABLET (FP) PO SCH (10:46)
[2019-12-13] MEDS: DOXYCYCLINE HYCLATE 100 MG CAPSULE PO SCH ×2 (10:46→17:48)
[2019-12-13] MEDS: ASCORBIC ACID 500 MG TABLET (FP) PO SCH ×2 (10:46→22:49)
[2019-12-13] MEDS: CEFTRIAXONE 1 GM in DEXTROSE 5%-WATER - 50 ML IVPB SCH (10:46)
[2019-12-13] MEDS: methylPREDNISolone NA SUCC 40 MG/1 ML VIAL IVPUSH SCH ×2 (10:46→22:49)
[2019-12-13] MEDS: ZINC SULFATE 220 MG CAPSULE (FP) PO SCH ×2 (10:46→22:49)
[2019-12-13] MEDS: BUDESONIDE/FORMETEROL FUMARATE 160/4.5 mcg INHALER IH SCH ×2 (10:48→23:12)
[2019-12-13] MEDS: CHOLECALCIFEROL (VIT D3) 1,000 UNIT (25 MCG) TABLET PO SCH (10:49)
--- NOTE | 2019-12-13 13:12 | PN ---
Progress Note, Physician History of Present Illness: PULMONARY ALERT,COMFORTABLE,-SOB,-COUGH - Current Medication List Current Medications: Active Medications Acetaminophen (Tylenol -) 650 mg PO Q6H PRN PRN Reason: FEVER Last Admin: 12/10/19 13:28 Dose: 650 mg Documented by: Amlodipine Besylate (Norvasc -) 10 mg PO DAILY [facility] Last Admin: 12/13/19 10:46 Dose: 10 mg Documented by: Ascorbic Acid (Vitamin C -) 1,000 mg PO BID [facility] Last Admin: 12/13/19 10:46 Dose: 1,000 mg Documented by: Budesonide/Formoterol Fumarate (Symbicort 160/4.5mcg -) 2 puff IH BID [facility] Last Admin: 12/13/19 10:48 Dose: Not Given Documented by: Cholecalciferol (Vitamin D3 -) 2,000 unit PO DAILY [facility] Last Admin: 12/13/19 10:49 Dose: 2,000 unit Documented by: Doxycycline Hyclate (Vibramycin -) 100 mg PO BID@1000,1800 [facility] Last Admin: 12/13/19 10:46 Dose: 100 mg Documented by: Enoxaparin Sodium (Lovenox -) 80 mg SQ Q12H [facility] Last Admin: 12/13/19 05:30 Dose: 80 mg Documented by: Ceftriaxone Sodium 1 gm/ (Dextrose) 50 mls @ 100 mls/hr IVPB DAILY [facility]; Protocol Last Admin: 12/13/19 10:46 Dose: 100 mls/hr Documented by: Methylprednisolone Sodium Succinate (Solu-Medrol -) 40 mg IVPUSH BID [facility] Last Admin: 12/13/19 10:46 Dose: 40 mg Documented by: Zinc Sulfate (Orazinc -) 220 mg PO BID [facility] Last Admin: 12/13/19 10:46 Dose: 220 mg Documented by: - Objective Vital Signs: Vital Signs Temperature 97.6 F 12/13/19 10:00 Pulse Rate 64 12/13/19 10:00 Respiratory Rate 18 12/13/19 10:00 Blood Pressure 126/71 12/13/19 10:00 O2 Sat by Pulse Oximetry (%) 97 12/13/19 10:00 Constitutional: Yes: Well Nourished, Calm Eyes: Yes: WNL HENT: Yes: WNL Neck: Yes: WNL Cardiovascular: Yes: Regular Rate and Rhythm, S1, S2 Respiratory: Yes: CTA Bilaterally Gastrointestinal: Yes: Normal Bowel Sounds, Soft Extremities: Yes: WNL Edema: No Labs: CBC, BMP 12/13/19 06:52 12/13/19 06:52 INR, PTT INR 0.93 (0.83-1.09) 12/09/19 19:49 Assessment/Plan Problem List - Problems (1) COVID-19 Code(s): U07.1 - COVID POSITIVE (2) Chest pain Code(s): R07.9 - CHEST PAIN, UNSPECIFIED (3) SOB (shortness of breath) Code(s): R06.02 - SHORTNESS OF BREATH (4) COVID-19 virus detected Code(s): U07.1 - COVID POSITIVE (5) HTN (hypertension) Code(s): I10 - ESSENTIAL (PRIMARY) HYPERTENSION (6) Hypoxemia Code(s): R09.02 - HYPOXEMIA (7) Viral syndrome Code(s): B34.9 - VIRAL INFECTION, UNSPECIFIED Assessment/Plan IMP: COVID PNEUMONITIS HYPOXEMIA HTN HLD PLAN: Lovenox BID Supplemental O2 as needed Would offer Convalescent Plasma if consents If condition worsens can offer Remdesevir BD TX PRN Steroids sa me dose DOAC on discharge Follow inflammatory markers DR FORTUNE Problem List - Problems (1) COVID-19 Code(s): U07.1 - COVID POSITIVE (2) Chest pain Code(s): R07.9 - CHEST PAIN, UNSPECIFIED Qualifiers: Chest pain type: chest pain on breathing Qualified Code(s): R07.1 - Chest pain on breathing; R07.81 - Pleurodynia (3) SOB (shortness of breath) Code(s): R06.02 - SHORTNESS OF BREATH (4) COVID-19 virus detected Code(s): U07.1 - COVID POSITIVE (5) HTN (hypertension) Code(s): I10 - ESSENTIAL (PRIMARY) HYPERTENSION (6) Hypoxemia Code(s): R09.02 - HYPOXEMIA (7) Viral syndrome Code(s): B34.9 - VIRAL INFECTION, UNSPECIFIED
--- NOTE | 2019-12-13 14:34 | PN ---
Teaching Attending Note Name of Resident: Gavin Skelton ATTENDING PHYSICIAN STATEMENT I saw and evaluated the patient. I reviewed the resident's note and discussed the case with the resident. I agree with the resident's findings and plan as documented. SUBJECTIVE: resident used foreign language interpreter phone OBJECTIVE: NAD ,a wake, alert. CV: RRR, no MRG Lungs: CTAB Ext : No edema or erythema on upper or lower extremities Lungs: CTAB ASSESSMENT AND PLAN: 69 y/o man with HTN and recent diagnosis of COVID with hospitalization 01/05-12/07 who presented with worsening SOB. He was treated fro COVID PNA 1- COVID PNA . much improved . cxray this admissinand last admission were reviewed - will order pre-post ambulatory pulse ox. i doubt he will need O2 . - complete a 7 day course of Abx - dc on steroids 10 ore days after dc . - cont eliquis x 6 weeks - CRP, LDH, and d- dimer went down - BUN and WBC elevated due to steroids - f/u with pulm as out pt for PFTs 2- H/o HTN : cont Norvasc DC home later today . d/w Dr. linn
--- NOTE | 2019-12-13 16:53 | PN ---
Physical Exam: SUBJECTIVE: Patient seen and examined at bedside. He is A&Ox3 and not confused. He reported no fever/chills and no shortness of breath. Pre/post showed 94% on room air sitting and 91% on room air walking. OBJECTIVE: Vital Signs Period Temp Pulse Resp BP Sys/Harkins Pulse Ox Last 24 Hr 97.6 F-98.4 F 64-101 18-22 126-132/59-78 91-98 GENERAL: The patient is awake, alert, and fully oriented, in no acute distress. HEAD: Normal with no signs of trauma. EYES: Extraocular movements intact. No ptosis. ENT: Ears normal, nares patent, oropharynx clear without exudates, moist mucous membranes. NECK: Trachea midline, full range of motion, supple. LUNGS: Breath sounds equal, clear to auscultation bilaterally, no wheezes, no crackles, no accessory muscle use. HEART: Regular rate and rhythm, S1, S2 without murmur, rub or gallop. ABDOMEN: Soft, nontender, nondistended, normoactive bowel sounds, no guarding, no rebound, no masses. EXTREMITIES: 2+ pulses, warm, well-perfused, no edema. NEUROLOGICAL: Normal speech, gait not observed. PSYCH: Normal mood, normal affect. SKIN: Warm, dry, normal turgor, no rashes or lesions noted Laboratory Results - last 24 hr 12/13/19 12/13/19 06:52 06:52 WBC 13.3 H RBC 4.61 Hgb 12.7 Hct 38.4 MCV 83.4 MCH 27.6 MCHC 33.1 RDW 13.9 Plt Count 286 MPV 8.9 Sodium 138 Potassium 4.9 Chloride 103 Carbon Dioxide 25 Anion Gap 10 BUN 30.9 H Creatinine 1.2 Est GFR (CKD-EPI)AfAm 71.58 Est GFR (CKD-EPI)NonAf 61.76 Random Glucose 354 H Calcium 8.6 Phosphorus 4.0 Magnesium 2.5 H Total Bilirubin 0.5 AST 31 ALT 46 Alkaline Phosphatase 68 Total Protein 7.0 Albumin 2.8 L Active Medications Generic Name Dose Route Start Last Admin Trade Name Freq PRN Reason Stop Dose Admin Acetaminophen 650 mg 12/10/19 12:34 12/10/19 13:28 Tylenol - PO 650 mg Q6H PRN Administration FEVER Amlodipine Besylate 10 mg 12/10/19 10:00 12/13/19 10:46 Norvasc - PO 10 mg DAILY MAYNOR Administration Ascorbic Acid 1,000 mg 12/10/19 10:00 12/13/19 10:46 Vitamin C - PO 1,000 mg BID MAYNOR Administration Budesonide/Formoterol Fumarate 2 puff 12/10/19 10:00 12/13/19 10:48 Symbicort 160/4.5mcg - IH Not Given BID MAYNOR Cholecalciferol 2,000 unit 12/10/19 12:00 12/13/19 10:49 Vitamin D3 - PO 2,000 unit DAILY MAYNOR Administration Doxycycline Hyclate 100 mg 12/11/19 10:00 12/13/19 10:46 Vibramycin - PO 100 mg BID@1000,1800 MAYNOR Administration Enoxaparin Sodium 80 mg 12/10/19 05:30 12/13/19 05:30 Lovenox - SQ 80 mg Q12H MAYNOR Administration Ceftriaxone Sodium 1 gm/ 50 mls @ 100 mls/hr 12/10/19 18:45 12/13/19 10:46 Dextrose IVPB 100 mls/hr DAILY MAYNOR Administration Protocol Methylprednisolone Sodium Succinate 40 mg 12/10/19 11:54 12/13/19 10:46 Solu-Medrol - IVPUSH 40 mg BID MAYNOR Administration Zinc Sulfate 220 mg 12/10/19 10:00 12/13/19 10:46 Orazinc - PO 220 mg BID MAYNOR Administration ASSESSMENT/PLAN: 69 year old male patient with past medical history that includes HTN, who presented to the emergency room with shortness of breath. 1. COVID Pneumonitis - 12/06/2019 COVID test positive - 12/07/[address] shows peripheral ground glass opacities consistent with COVID pneumonitis - Lovenox BID, Supplemental O2 as needed, Steroids, Vitamin D3, Vitamin C, Zinc - On Ceftriaxone - Convalescent Plasma consent form signed by patient today. - Remdesevir if condition worsens - Monitoring inflammatory markers 2. HTN - Norvasc # FEN - Monitoring electrolytes, Sodium controlled diet DVT PPx - Lovenox 80mg BID Visit type - Emergency Visit Emergency Visit: Yes ED Registration Date: 12/09/19 Care time: The patient presented to the Emergency Department on the above date and was hospitalized for further evaluation of their emergent condition. - New Patient This patient is new to me today: No - Critical Care Critical Care patient: No - Discharge Referral Referred to [facility] Med P.C.: No - Medication Review Med list reviewed for High Risk Meds patients 65 and older: Yes ATTENDING PHYSICIAN STATEMENT I saw and evaluated the patient. I reviewed the resident's note and discussed the case with the resident. I agree with the resident's findings and plan as documented. SUBJECTIVE: OBJECTIVE: ASSESSMENT AND PLAN:
[2019-12-13] MEDS ORDERED: INSULIN (NOVOLOG) ASPART 100 UNITS/ML 10ML VIAL SQ ONE (18:00)
[2019-12-13 21:43] LABS: BLOOD UREA NITROGEN 41.2 mg/dL (7-18); CALCIUM 8.4 mg/dL (8.5-10.1); CREATININE 1.5 mg/dL (0.55-1.3); POTASSIUM 4.6 mmol/L (3.5-5.1)
[2019-12-13] MEDS: INSULIN SLIDING SCALE (NOVOLOG) 1 VIAL SQ SCH (23:12)
[2019-12-14] MEDS: ENOXAPARIN NA (PORCINE) 80 MG/0.8 ML DISP.SYRIN SQ SCH ×2 (06:34→16:49)
[2019-12-14] MEDS: INSULIN SLIDING SCALE (NOVOLOG) 1 VIAL SQ SCH ×4 (06:35→16:31)
[2019-12-14 08:38] LABS: HEMATOCRIT 43.1 % (35.4-49); HEMOGLOBIN 14.3 GM/dL (11.7-16.9); MCH 27.7 pg (25.7-33.7); MCHC 33.1 g/dl (32.0-35.9); MEAN CELL VOLUME 83.8 fl (80-96); MEAN PLT VOLUME 8.8 fl (7.5-11.1); PLATELET COUNT 364 K/MM3 (134-434); RBC 5.14 M/mm3 (4.00-5.60); RDW 14.2 % (11.9-15.9); WHITE BLOOD COUNT 13.5 K/mm3 (4.0-10.0)
[2019-12-14 08:49] LABS: ALBUMIN 2.8 g/dl (3.4-5.0); BILIRUBIN,TOTAL 0.4 mg/dL (0.2-1); CALCIUM 8.5 mg/dL (8.5-10.1); MAGNESIUM 2.6 mg/dL (1.8-2.4); PHOSPHOROUS 3.6 mg/dL (2.5-4.9); POTASSIUM 4.9 mmol/L (3.5-5.1)
--- NOTE | 2019-12-14 10:44 | PN ---
Progress Note, Physician History of Present Illness: pulmonary alert,comfortable,-sob. pt and daughter refused convalescent plasma.inflammatory markers improving - Current Medication List Current Medications: Active Medications Acetaminophen (Tylenol -) 650 mg PO Q6H PRN PRN Reason: FEVER Last Admin: 12/10/19 13:28 Dose: 650 mg Documented by: Amlodipine Besylate (Norvasc -) 10 mg PO DAILY [facility] Last Admin: 12/13/19 10:46 Dose: 10 mg Documented by: Ascorbic Acid (Vitamin C -) 1,000 mg PO BID [facility] Last Admin: 12/13/19 22:49 Dose: 1,000 mg Documented by: Budesonide/Formoterol Fumarate (Symbicort 160/4.5mcg -) 2 puff IH BID [facility] Last Admin: 12/13/19 23:12 Dose: 2 puff Documented by: Cholecalciferol (Vitamin D3 -) 2,000 unit PO DAILY [facility] Last Admin: 12/13/19 10:49 Dose: 2,000 unit Documented by: Doxycycline Hyclate (Vibramycin -) 100 mg PO BID@1000,1800 [facility] Last Admin: 12/13/19 17:48 Dose: 100 mg Documented by: Enoxaparin Sodium (Lovenox -) 80 mg SQ Q12H [facility] Last Admin: 12/14/19 06:34 Dose: 80 mg Documented by: Ceftriaxone Sodium 1 gm/ (Dextrose) 50 mls @ 100 mls/hr IVPB DAILY [facility]; Protocol Last Admin: 12/13/19 10:46 Dose: 100 mls/hr Documented by: Insulin Aspart (Novolog Vial Sliding Scale -) 1 vial SQ ACHS [facility]; Protocol Last Admin: 12/14/19 06:35 Dose: 6 units Documented by: Methylprednisolone Sodium Succinate (Solu-Medrol -) 40 mg IVPUSH BID [facility] Last Admin: 12/13/19 22:49 Dose: 40 mg Documented by: Zinc Sulfate (Orazinc -) 220 mg PO BID [facility] Last Admin: 12/13/19 22:49 Dose: 220 mg Documented by: - Objective Vital Signs: Vital Signs Temperature 98.1 F 12/14/19 06:00 Pulse Rate 65 12/14/19 06:00 Respiratory Rate 20 12/14/19 06:00 Blood Pressure 133/70 12/14/19 06:00 O2 Sat by Pulse Oximetry (%) 94 L 08/19/20 06:00 Constitutional: Yes: Well Nourished, Calm Eyes: Yes: WNL HENT: Yes: WNL Neck: Yes: WNL Cardiovascular: Yes: Regular Rate and Rhythm, S1, S2 Respiratory: Yes: CTA Bilaterally Gastrointestinal: Yes: Normal Bowel Sounds, Soft Extremities: Yes: WNL Edema: No Labs: CBC, BMP 12/14/19 07:55 12/14/19 06:59 INR, PTT INR 0.93 (0.83-1.09) 12/09/19 19:49 Laboratory Tests 12/14/19 12/14/19 06:59 06:59 D-Dimer 559 H Ferritin 858.9 H LD Total 314 H C-Reactive Protein 2.9 H Assessment/Plan Problem List - Problems (1) COVID-19 Code(s): U07.1 - COVID POSITIVE (2) Chest pain Code(s): R07.9 - CHEST PAIN, UNSPECIFIED (3) SOB (shortness of breath) Code(s): R06.02 - SHORTNESS OF BREATH (4) COVID-19 virus detected Code(s): U07.1 - COVID POSITIVE (5) HTN (hypertension) Code(s): I10 - ESSENTIAL (PRIMARY) HYPERTENSION (6) Hypoxemia Code(s): R09.02 - HYPOXEMIA (7) Viral syndrome Code(s): B34.9 - VIRAL INFECTION, UNSPECIFIED Assessment/Plan IMP: COVID PNEUMONITIS improving HYPOXEMIA HTN HLD PLAN: Lovenox BID Supplemental O2 as needed If condition worsens can offer Remdesevir BD TX PRN Steroids sa me dose AC X 6WKS post discharge prednisone x 10days DR FORTUNE Problem List - Problems (1) COVID-19 Code(s): U07.1 - COVID POSITIVE (2) Chest pain Code(s): R07.9 - CHEST PAIN, UNSPECIFIED Qualifiers: Chest pain type: chest pain on breathing Qualified Code(s): R07.1 - Chest pain on breathing; R07.81 - Pleurodynia (3) SOB (shortness of breath) Code(s): R06.02 - SHORTNESS OF BREATH (4) COVID-19 virus detected Code(s): U07.1 - COVID POSITIVE (5) HTN (hypertension) Code(s): I10 - ESSENTIAL (PRIMARY) HYPERTENSION (6) Hypoxemia Code(s): R09.02 - HYPOXEMIA (7) Viral syndrome Code(s): B34.9 - VIRAL INFECTION, UNSPECIFIED
[2019-12-14] MEDS ORDERED: cefTRIAXone SODIUM 1 GM VIAL ONE (11:16)
[2019-12-14] MEDS ORDERED: DEXTROSE 5%-WATER - 50 ML IVPB ONE (11:16)
[2019-12-14] MEDS: methylPREDNISolone NA SUCC 40 MG/1 ML VIAL IVPUSH SCH (11:31)
[2019-12-14] MEDS: CEFTRIAXONE 1 GM in DEXTROSE 5%-WATER - 50 ML IVPB SCH (11:31)
[2019-12-14] MEDS: BUDESONIDE/FORMETEROL FUMARATE 160/4.5 mcg INHALER IH SCH (11:33)
[2019-12-14] MEDS: ASCORBIC ACID 500 MG TABLET (FP) PO SCH (11:33)
[2019-12-14] MEDS: amLODIPine BESYLATE 10 MG TABLET (FP) PO SCH (11:33)
[2019-12-14] MEDS: ZINC SULFATE 220 MG CAPSULE (FP) PO SCH (11:33)
[2019-12-14] MEDS: CHOLECALCIFEROL (VIT D3) 1,000 UNIT (25 MCG) TABLET PO SCH (11:34)
[2019-12-14] MEDS: DOXYCYCLINE HYCLATE 100 MG CAPSULE PO SCH ×2 (11:34→16:49)
--- NOTE | 2019-12-14 15:08 | PN ---
Teaching Attending Note Name of Resident: Candelario Pineda ATTENDING PHYSICIAN STATEMENT I saw and evaluated the patient. I reviewed the resident's note and discussed the case with the resident. I agree with the resident's findings and plan as documented. 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 denies SOB . No cough . he feels better OBJECTIVE: NAD ,awake, alert. CV: RRR, no MRG Lungs: CTAB Ext : No edema or erythema on upper or lower extremities Lungs: CTAB ASSESSMENT AND PLAN: 69 y/o man with HTN and recent diagnosis of COVID with hospitalization 01/05-12/07 who presented with worsening SOB. He was treated for COVID PNA 1- COVID PNA .improved ,. No need for O2 on exertion or at rest . cont - complete a course of Abx and finish a course of steroids, and 6 weeks of eliquis. - inflammatory markers are all down. no hypoxia . he and his daughter erefused plasma yesterday . case was d/w Dr. Chiu , no need for Remdisivir. Ok for home - out pt pulm eval and PFTS 2- new onset DM . sugar is worse with steroids give metformin at dc diet and life style changes f/u with pcpc check sugar before meals. if sugar > 300, he should call PCP for guidance. expect suagr to be better after finishing steroids all explained through concrete placement equipment operator 2- H/o HTN : cont Norvasc dc home family was updated about details of dc instructions by team
--- NOTE | 2019-12-14 15:27 | DS ---
Physical Exam: SUBJECTIVE: Patient seen and examined at bedside. The patient reports being ready for discharge. The patient did not receive c-plasma. OBJECTIVE: Vital Signs Period Temp Pulse Resp BP Sys/Harkins Pulse Ox Last 24 Hr 97.9 F-98.5 F 59-67 18-20 133-147/70-80 93-97 PHYSICAL EXAM GENERAL: The patient is awake, alert, and fully oriented, in no acute distress. HEAD: Normal with no signs of trauma. EYES: Extraocular movements intact. No ptosis. ENT: Ears normal, nares patent, oropharynx clear without exudates, moist mucous membranes. NECK: Trachea midline, full range of motion, supple. LUNGS: Breath sounds equal, clear to auscultation bilaterally, no wheezes, no crackles, no accessory muscle use. HEART: Regular rate and rhythm, S1, S2 without murmur, rub or gallop. ABDOMEN: Soft, nontender, nondistended, normoactive bowel sounds, no guarding, no rebound, no masses. EXTREMITIES: 2+ pulses, warm, well-perfused, no edema. NEUROLOGICAL: Normal speech, gait not observed. PSYCH: Normal mood, normal affect. SKIN: Warm, dry, normal turgor, no rashes or lesions noted LABS Laboratory Results - last 24 hr 12/13/19 12/13/19 12/13/19 17:50 20:30 20:30 WBC RBC Hgb Hct MCV MCH MCHC RDW Plt Count MPV D-Dimer Sodium 134 L Potassium 4.6 Chloride 98 Carbon Dioxide 24 Anion Gap 12 BUN 41.2 H Creatinine 1.5 H Est GFR (CKD-EPI)AfAm 54.66 Est GFR (CKD-EPI)NonAf 47.16 POC Glucometer 512 Random Glucose 608 H* Hemoglobin A1c % Calcium 8.4 L Phosphorus Magnesium Ferritin Total Bilirubin AST ALT Alkaline Phosphatase LD Total C-Reactive Protein Total Protein Albumin Blood Type O POSITIVE Antibody Screen Negative 12/13/19 12/14/19 12/14/19 22:54 00:05 02:10 WBC RBC Hgb Hct MCV MCH MCHC RDW Plt Count MPV D-Dimer Sodium Potassium Chloride Carbon Dioxide Anion Gap BUN Creatinine Est GFR (CKD-EPI)AfAm Est GFR (CKD-EPI)NonAf POC Glucometer 451 413 333 Random Glucose Hemoglobin A1c % Calcium Phosphorus Magnesium Ferritin Total Bilirubin AST ALT Alkaline Phosphatase LD Total C-Reactive Protein Total Protein Albumin Blood Type Antibody Screen 12/14/19 12/14/19 12/14/19 04:42 06:31 06:59 WBC RBC Hgb Hct MCV MCH MCHC RDW Plt Count MPV D-Dimer Sodium Potassium Chloride Carbon Dioxide Anion Gap BUN Creatinine Est GFR (CKD-EPI)AfAm Est GFR (CKD-EPI)NonAf POC Glucometer 275 287 Random Glucose Hemoglobin A1c % 6.7 H Calcium Phosphorus Magnesium Ferritin Total Bilirubin AST ALT Alkaline Phosphatase LD Total C-Reactive Protein Total Protein Albumin Blood Type Antibody Screen 12/14/19 12/14/19 12/14/19 06:59 06:59 07:55 WBC 13.5 H RBC 5.14 Hgb 14.3 Hct 43.1 MCV 83.8 MCH 27.7 MCHC 33.1 RDW 14.2 Plt Count 364 D MPV 8.8 D-Dimer 559 H Sodium 138 Potassium 4.9 Chloride 107 Carbon Dioxide 19 L Anion Gap 12 BUN 29.0 H Creatinine 1.0 Est GFR (CKD-EPI)AfAm 89.23 Est GFR (CKD-EPI)NonAf 76.99 POC Glucometer Random Glucose 288 H Hemoglobin A1c % Calcium 8.5 Phosphorus 3.6 Magnesium 2.6 H Ferritin 858.9 H Total Bilirubin 0.4 AST 42 H ALT 62 H Alkaline Phosphatase 68 LD Total 314 H C-Reactive Protein 2.9 H Total Protein 7.0 Albumin 2.8 L Blood Type Antibody Screen 12/14/19 11:38 WBC RBC Hgb Hct MCV MCH MCHC RDW Plt Count MPV D-Dimer Sodium Potassium Chloride Carbon Dioxide Anion Gap BUN Creatinine Est GFR (CKD-EPI)AfAm Est GFR (CKD-EPI)NonAf POC Glucometer 338 Random Glucose Hemoglobin A1c % Calcium Phosphorus Magnesium Ferritin Total Bilirubin AST ALT Alkaline Phosphatase LD Total C-Reactive Protein Total Protein Albumin Blood Type Antibody Screen HOSPITAL COURSE: Date of Admission:12/09/19 69 year old male patient with past medical history that includes HTN, who presented to the emergency room with shortness of breath. During a previous admission, on 12/06/2019 the patient's COVID was positive. The patient presented on 12/09/[address] showed peripheral ground glass opacities consistent with COVID pneumonitis. Repeat COVID was negative, but it was considered highly likely to be a false negative test. The patient received Lovenox BID, Supplemental O2 as needed, Steroids, Vitamin D3, Vitamin C, Zinc, as well as Ceftriaxone to cover for any potential overlying bacterial pneumonia. Inflammatory markers were tracked during the hospital admission and found to be improving daily prior to discharge. The patient was A&Ox1 and confused during the hospital admission, but returned to his baseline mentation of A&Ox3 in the days prior to discharge. The patient initially accepted Convalescent Plasma, but was found to be confused on exam, so his daughter was called for consent. The daughter refused to consent for Convalescent Plasma as she reported being afraid of new treatments and wanted to see if her father would improve on his own. The patient improved in the coming days and was discharged once he was able to pass a pre/post ambulatory oxygenation test. Patient discharged on Eliquis, antibiotics, and a Prednisone taper, and with instructions to self- quarantine for 2 weeks. The patient was found to have an elevated A1c and was given Metformin and instructions to follow up with an Supervisor Cell [employer] for his newly-diagnosed diabetes. Date of Discharge: 12/14/19 Minutes to complete discharge: 42 Discharge Summary Problems reviewed: Yes Reason For Visit: SEVERE ACUTE RESPIRATORY SYNDROME CORONAVIRUS 2 Condition: Improved - Instructions Diet, Activity, Other Instructions: In [place]: You were admitted to the hospital because of shortness of breath. We evaluated you with lab work, blood work, and imaging including a CAT scan. Based on our evaluation, you had pneumonia due to COVID19. We treated you with medications including oxygen and antibiotics, and your symptoms resolved. You were also found to have elevated blood sugar levels, and we now know that you have diabetes. Please take the diabetes medicine as prescribed, and also eat foods high in fiber and low in sugar. Try to get some exercise a few times a week. You are being referred to an domestic travel consultant for management of your diabetes, please check your blood glucose before meals every day, and make sure to write down the time and the values, you will need to bring this sheet with you when you see the domestic travel consultant. If your blood glucose is over 300, please call your primary care physician. Recommendation Please self-quarantine for 2 weeks to avoid spreading COVID19 to others. Imaging Findings The following imaging findings were found during your hospital stay: A CAT scan of your head was normal with no significant abnormalities. Medications Please START taking the blood thinner Eliquis 5mg every 12 hours for 41 days from 12/15/2019 to 01/25/2020 to prevent problems such as blood clots after having had COVID19. Please START taking the antibiotic Ceftin 500mg every 12 hours for 2 days from 12/15/2019 to 12/16/2019 for your pneumonia. Please START taking the antibiotic Doxycyline 100 every 12 hours for 1 more day on 12/15/2019 for your pneumonia. Please START taking Metformin 1000 mg by mouth once a day every day. Please take Prednisone 10mg tablets by mouth every day as follows: Dec 14: Take 4 pills once (4 x 10mg = 40mg) Dec 15: Take 3 pills once (3 x 10mg = 30mg) Nov 22: Take 3 pills once (3 x 10mg = 30mg) Nov 23: Take 3 pills once (3 x 10mg = 30mg) Nov 24: Take 2 pills once (2 x 10mg = 20mg) Nov 25: Take 2 pills once (2 x 10mg = 20mg) Nov 26: Take 2 pills once (2 x 10mg = 20mg) Nov 27: Take 1 pill once (1 x 10mg = 10mg) Nov 28: Take 1 pill once (1 x 10mg = 10mg) Please continue all of your medications as prescribed. Follow ups Please follow up with the Water Resources Technical Officer Dr. Zachariah Chiu after 2 weeks. Please follow up with the Supervisor Cell Operation Dr. Shiv Lundberg after 2 weeks. Please follow up with your Primary Care physician Dr. Kathya Dixon after 1 weeks. If you experience worsening symptoms, chest pain, shortness of breath, abdominal pain, or worsening of your condition, please come to the emergency room or call 911. En Espaol: Fue admitido en el hospital por falta de aire. Lo evaluamos con anlisis de laboratorio, anlisis de aimee e imgenes, incluida bernard tomografa computarizada. Segn nuestra evaluacin, tripp neumona y posiblemente COVID19. Lo tratamos con medicamentos que incluan oxgeno y antibiticos, y mabel sntomas se resolvieron. Tambin se descubri que tripp niveles elevados de azcar en aimee y ahora sabemos que tiene diabetes. [place] el medicamento para la diabetes segn lo prescrito y tambin coma alimentos con alto contenido de fibra y bajo contenido de azcar. Intente hacer algo de ejercicio algunas veces a la semana. Est siendo derivado a un endocrinlogo para el manejo de no diabetes, por favor revise no glucosa en aimee antes de las comidas todos los clarke y asegrese de anotar la hora y los valores, deber llevar esta hoja cuando visite al endocrinlogo. Si no nivel de glucosa en aimee es superior a 300, llame a no mdico de atencin primaria. Recomendacin Pngase en cuarentena vaishnavi 2 semanas para evitar transmitir COVID19 a otras personas. Hallazgos de imgenes Se encontraron los siguientes hallazgos de imgenes vaishnavi no estada en el hospital: Bernard tomografa computarizada de no blossom fue normal sin anomalas significativas. Medicamentos COMIENCE a matthew el anticoagulante Eliquis 5 mg cada 12 horas vaishnavi 41 clarke desde el 15/12/2019 hasta el 25/01/2020 para prevenir problemas abeba cogulos de aimee despus de kam tenido COVID19. COMIENCE a matthew el antibitico Ceftin 500 mg cada 12 horas vaishnavi 2 clarke desde el 15/12/2019 hasta el 16/12/2019 para no neumona. COMIENCE a matthew el antibitico Doxycyline 100 cada 12 horas vaishnavi 1 da ms el 15/12/2019 para no neumona. COMIENCE a matthew Metformina 1000 mg por va oral bernard vez al da todos los clarke. [place] las tabletas de Prednisona 10 mg por va oral todos los clarke vaishnavi los prximos 6 clarke de la siguiente manera: 20 de neto: tome 4 pastillas bernard vez (4 x 10 mg = 40 mg) 21 de neto: tome 3 pastillas bernard vez (3 x 10 mg = 30 mg) 22 de neto: tome 3 pastillas bernard vez (3 x 10 mg = 30 mg) 23 de neto: tome 3 pastillas bernard vez (3 x 10 mg = 30 mg) 24 de neto: tome 2 pastillas bernard vez (2 x 10 mg = 20 mg) 25 de neto: tome 2 pastillas bernard vez (2 x 10 mg = 20 mg) 26 de neto: tome 2 pastillas bernard vez (2 x 10 mg = 20 mg) 27 de neto: tome 1 pastilla bernard vez (1 x 10 mg = 10 mg) 28 de neto: tome 1 pastilla bernard vez (1 x 10 mg = 10 mg) Contine con todos mabel medicamentos segn lo recetado. Seguimientos [place] un seguimiento con el neumlogo Dr. Zachariah Chiu despus de 2 semanas. [place] un seguimiento con el endocrinlogo Dr. Shiv Lundberg despus de 2 semanas. [place] un seguimiento con no mdico de atencin primaria, la Dra. Kathya Dixon, despus de 1 semanas. Si experimenta un empeoramiento de los sntomas, dolor en el pecho, dificultad para respirar, dolor abdominal o empeoramiento de no afeccin, acuda a la jack de emergencias o llame al 911. Referrals: Zachariah Chiu MD [Staff Physician] - 2 Weeks () Kathya Dixon MD [Primary Care Provider] - 1 Week Shiv Lundberg MD [Staff Physician] - 2 Weeks (Newly diagnosed diabetes with A1C 6.7%) Disposition: HOME - Home Medications Comprehensive Discharge Medication List: Ambulatory Orders Amlodipine Besylate [Norvasc -] 10 mg PO DAILY 12/07/19 Ascorbic Acid [Vitamin C -] 1,000 mg PO BID #28 tablet 12/08/19 Budesonide/Formeterol Fumarate [SYMBICORT 160/4.5mcg -] 2 puff IH BID #1 inhaler 12/08/19 Zinc Sulfate [Orazinc -] 220 mg PO BID #28 capsule 12/08/19 Apixaban [Eliquis] 5 mg PO BID 42 Days #84 tablet 12/13/19 Cefuroxime Axetil [Ceftin -] 500 mg PO Q12H 3 Days #6 tablet 12/13/19 Doxycycline Hyclate [Vibramycin] 100 mg PO Q12H #4 capsule 12/13/19 Prednisone See Taper PO DAILY 6 Days #15 tablet 12/13/19 Lancets [Lancets Thin] 1 each MC TID #100 each 12/14/19 Miscellaneous Medical Supply [Glucometer Device] 1 each .ROUTE ASDIR #1 kit 12/14/19 Miscellaneous Medical Supply [Glucometer Test Strips #100] 1 each .ROUTE ASDIR #1 box 12/14/19 metFORMIN XR [Glucophage Xr -] 1,000 mg PO DAILY #60 tab.sr.24h 12/14/19 This patient is new to me today: No Emergency Visit: Yes ED Registration Date: 12/09/19 Care time: The patient presented to the Emergency Department on the above date and was hospitalized for further evaluation of their emergent condition. Critical Care patient: No - Discharge Referral Referred to [facility] No ATTENDING PHYSICIAN STATEMENT I saw and evaluated the patient. I reviewed the resident's note and discussed the case with the resident. I agree with the resident's findings and plan as documented. SUBJECTIVE: OBJECTIVE: ASSESSMENT AND PLAN:
[2019-12-14 15:59] VITALS: BP 114/80; PULSE 73; TEMP 98.1
[2019-12-14] MEDS ORDERED: INSULIN (NOVOLOG) ASPART 100 UNITS/ML 10ML VIAL SQ ONE (18:00)
== END 2019-12-14 17:12 | disposition home or self-care (01) | DRG 871 ==
LOC: JERFT 17:51 → JER 17:51 → JERBED 20:41 → J5S 12-10 01:09
PROVIDERS: ADMIT Internal Medicine; ATTEND Internal Medicine
DX: A41.89 Other specified sepsis (principal); G93.41 Metabolic encephalopathy; U07.1 COVID-19; J12.89 Other viral pneumonia; R41.82 Altered mental status, unspecified; R00.0 Tachycardia, unspecified; R07.81 Pleurodynia; K21.9 Gastro-esophageal reflux disease without esophagitis; E88.09 Other disorders of plasma-protein metabolism, not elsewhere classified; I10 Essential (primary) hypertension; R09.02 Hypoxemia; E11.9 Type 2 diabetes mellitus without complications
CPT/HCPCS: 36415; 70450-TC; 71045-TC-FY; 80048; 80053; 80061; 81003; 82248; 82550; 82553; 82728; 82803; 82962; 83036; 83605; 83615; 83721; 83735; 84100; 84484; 85025; 85027; 85379; 85610; 85730; 86140; 86850; 86900; 86901; 87040; 87070; 87086; 87205; 93005; 93010; 94761; 99285-25; U0003